=== PATIENT | female | born 1965 | race Caucasian/White ===

== ENCOUNTER 2023-04-18 19:26 | Inpatient (IN) | payer OTHER ==
[~2023-04-18] VITALS: Ht 170.2 cm; Wt 75.6 kg
[2023-04-18] MEDS ORDERED: 0.9%NACL 1000ML 1,000 ML IV SCH (20:00)
[2023-04-18 21:05] LABS: EOSINOPHILS % (AUTO) 0.3 % (0.0-8.0); MEAN CORPUSCULAR HEMOGLOBIN 24.7 pg (27.0-33.0); MEAN CORPUSCULAR HGB CONC 29.8 g/dL (32.0-36.0); MEAN CORPUSCULAR VOLUME 82.8 fL (79-99); MONOCYTES % (AUTO) 5.5 % (3.0-13.0); NEUTROPHILS % (AUTO) 77.7 % (40.0-77.0); PLATELET COUNT (AUTO) 162 K/uL (130-400); RED BLOOD CELL COUNT(AUTO) 2.39 MIL/uL (4.00-5.50); RED CELL DISTRIBUTION WIDTH 23.7 % (11.0-15.5); WHITE BLOOD COUNT (AUTO) 11.2 K/uL (4.8-10.8)
[2023-04-18 21:16] LABS: HEMATOCRIT 19.8 % (36-48)
[2023-04-18 21:17] LABS: INR 1.35 (0.85-1.15); PROTHROMBIN TIME 14.5 SEC (9.6-11.6)
[2023-04-18 21:18] LABS: PARTIAL THROMBOPLASTIN TIME 34.3 SEC (26.3-35.5)
[2023-04-18 21:25] LABS: B-TYPE NATRIURETIC PEPTIDE 351 pg/mL (0-100)
[2023-04-18 21:37] LABS: ALBUMIN 0.7 g/dL (3.5-5.0); CREATININE 1.5 mg/dL (0.5-1.5); MAGNESIUM 1.8 mg/dL (1.80-2.40); THYROID STIMULATING HORMONE 63.35 uIU/mL (0.36-3.74); TOTAL PROTEIN, SERUM 3.6 g/dL (6.0-8.3)
[2023-04-18 21:43] LABS: POTASSIUM 1.8 mmol/L (3.5-5.1)
[2023-04-18] MEDS ORDERED: PANTOPRAZOLE 40 MG/VIAL IV SCH (22:00)
[2023-04-18] MEDS ORDERED: POTASSIUM CHLORIDE 10% ELIXIR 20 MEQ/15 ML UDCUP PO SCH (22:00)
[2023-04-18] MEDS: POTASSIUM CHLORIDE 20 MEQ/100 ML BAG IV SCH (22:08)
[2023-04-18] MEDS ORDERED: LACTATED RINGERS 1000ML 1,000 ML IV SCH (22:30)
[2023-04-18] MEDS ORDERED: ONDANSETRON 4MG INJ IV ONE (22:30)
[2023-04-18] MEDS ORDERED: ONDANSETRON 4MG INJ IVP ONE (22:30)
[2023-04-18 22:45] LABS: APPEARANCE,URINE CLOUDY (CLEAR); BILIRUBIN,URINE 0.5 mg/dL (NEGATIVE); COLOR,URINE YELLOW (YELLOW); GLUCOSE, URINE (UA) NEGATIVE (NEGATIVE); KETONES,URINE NEGATIVE (NEGATIVE); LEUKOCYTE ESTERASE ,URINE NEGATIVE Leu/uL (NEGATIVE); NITRATE,URINE NEGATIVE (NEGATIVE); OCCULT BLOOD,URINE NEGATIVE (NEGATIVE); PROTEIN,URINE 20 mg/dL (NEGATIVE); UROBILINOGEN,URINE 3 mg/dL (0.2-1.0)
[2023-04-18 22:47] LABS: BACTERIA,URINE FEW /HPF (None Seen); HYALINE CASTS, URINE 26-50 /LPF (0-1 /LPF); MUCUS,URINE RARE LPF (None Seen); SQUAMOUS EPITHELIAL CELL,UR RARE /HPF (0-2)
[2023-04-18] MEDS ORDERED: VANCOMYCIN 1G/250ML KIT 250 ML IV ONE (23:30)
[2023-04-18] MEDS ORDERED: VANCOMYCIN PROTOCOL PER PHARMACY IV SCH (23:30)
[2023-04-18] MEDS ORDERED: MAGNESIUM 2GM PREMIX 50ML 50 ML IV PRN (23:30)
[2023-04-18] MEDS ORDERED: POTASSIUM CHLORIDE 10MEQ/100ML 100 ML IV PRN (23:30)
[2023-04-19] VITALS (82 sets, daily range): BP systolic 77–135; BP diastolic 37–82; PULSE 60–85; RESP 12–21; O2SAT 94–98
[2023-04-19] MEDS ORDERED: NOREPINEPHRIN 4MG/NS 250ML 250 ML IV PRN (00:30)
[2023-04-19 05:23] LABS: BASOPHILS % (AUTO) 0.4 % (0.0-5.0); EOSINOPHILS % (AUTO) 0.5 % (0.0-8.0); LYMPHOCYTES % (AUTO) 7.4 % (21.0-51.0); MEAN CORPUSCULAR HEMOGLOBIN 25.4 pg (27.0-33.0); MEAN CORPUSCULAR HGB CONC 30.9 g/dL (32.0-36.0); MEAN CORPUSCULAR VOLUME 82.4 fL (79-99); PLATELET COUNT (AUTO) 139 K/uL (130-400); RED BLOOD CELL COUNT(AUTO) 4.25 MIL/uL (4.00-5.50); RED CELL DISTRIBUTION WIDTH 20.5 % (11.0-15.5); WHITE BLOOD COUNT (AUTO) 16.5 K/uL (4.8-10.8)
[2023-04-19 05:48] LABS: ALBUMIN 0.9 g/dL (3.5-5.0); CREATININE 1.4 mg/dL (0.5-1.5)
[2023-04-19] MEDS: POTASSIUM CHLORIDE 20 MEQ/100 ML BAG IV SCH (05:56)
[2023-04-19] MEDS ORDERED: POTASSIUM CHLORIDE 20MEQ/100ML 100 ML IV PRN (08:00)
[2023-04-19] MEDS: MEROPENEM 1 GM VIAL IVPB SCH ×2 (09:04→21:22)
[2023-04-19] MEDS: PANTOPRAZOLE 40 MG/VIAL IVP SCH ×2 (09:04→21:22)
[2023-04-19] MEDS: MIDODRINE HCL 5 MG TABLET PO SCH ×3 (09:04→21:23)
[2023-04-19] MEDS: LEVOTHYROXINE 100MCG VIAL IV SCH (09:05)
[2023-04-19] MEDS: HYDROCORTISONE SOD SUCCINATE 100 MG/2 ML VIAL IV SCH ×3 (09:05→17:34)
[2023-04-19] MEDS: KCL 20 MEQ ERTAB PO SCH ×3 (09:05→15:57)
[2023-04-19] MEDS: POTASSIUM CHLORIDE 20MEQ/100ML 100 ML IV PRN ×2 (15:56→19:30)
[2023-04-19 16:45] LABS: HEMATOCRIT 35.6 % (36-48)
[2023-04-19 17:00] LABS: MAGNESIUM 1.8 mg/dL (1.80-2.40)
[2023-04-19] MEDS ORDERED: VANCOMYCIN 750MG VIAL IVPB SCH (18:00)
[2023-04-19] MEDS: 0.9%NACL 1000ML 1,000 ML IV SCH ×2 (18:58→21:46)
[2023-04-19 22:39] LABS: HEMATOCRIT 32.1 % (36-48)
[2023-04-20] MEDS: HYDROCORTISONE SOD SUCCINATE 100 MG/2 ML VIAL IV SCH ×4 (01:41→17:31)
[2023-04-20 03:36] LABS: BASOPHILS % (AUTO) 0.3 % (0.0-5.0); HEMATOCRIT 32.7 % (36-48); MEAN CORPUSCULAR HEMOGLOBIN 25.4 pg (27.0-33.0); MEAN CORPUSCULAR HGB CONC 31.5 g/dL (32.0-36.0); MEAN CORPUSCULAR VOLUME 80.7 fL (79-99); MONOCYTES % (AUTO) 2.6 % (3.0-13.0); NEUTROPHILS % (AUTO) 87.5 % (40.0-77.0); PLATELET COUNT (AUTO) 118 K/uL (130-400); RED BLOOD CELL COUNT(AUTO) 4.05 MIL/uL (4.00-5.50); RED CELL DISTRIBUTION WIDTH 21.5 % (11.0-15.5); WHITE BLOOD COUNT (AUTO) 13.6 K/uL (4.8-10.8)
[2023-04-20 03:51] VITALS: BP 115/73; PULSE 54; RESP 18
[2023-04-20 04:00] LABS: ALBUMIN 0.7 g/dL (3.5-5.0); CREATININE 1.6 mg/dL (0.5-1.5); POTASSIUM 3.5 mmol/L (3.5-5.1); TOTAL PROTEIN, SERUM 3.5 g/dL (6.0-8.3)
[2023-04-20] MEDS: LEVOTHYROXINE 100MCG VIAL IV SCH (05:26)
[2023-04-20] MEDS ORDERED: LEVOTHYROXINE 100MCG VIAL IV SCH (06:30)
[2023-04-20] MEDS: POTASSIUM CHLORIDE 10% ELIXIR 20 MEQ/15 ML UDCUP PO PRN (06:37)
[2023-04-20 08:00] VITALS: BP 112/76; PULSE 64; RESP 16
[2023-04-20 10:12] LABS: HEMATOCRIT 37.5 % (36-48)
[2023-04-20] MEDS: MEROPENEM 1 GM VIAL IVPB SCH (10:15)
[2023-04-20] MEDS: 0.9%NACL 1000ML 1,000 ML IV SCH ×2 (10:15→21:26)
[2023-04-20] MEDS: PANTOPRAZOLE 40 MG/VIAL IVP SCH ×2 (10:16→20:42)
[2023-04-20] MEDS: MIDODRINE HCL 5 MG TABLET PO SCH ×3 (10:16→21:00)
[2023-04-20 12:00] VITALS: BP 130/95; PULSE 67; RESP 16
[2023-04-20] MEDS ORDERED: LEVOFLOXACIN 500 MG/D5W 100 ML 100 ML IV ONE (15:30)
[2023-04-20 16:00] VITALS: BP 128/91; PULSE 62; RESP 16
[2023-04-20 16:36] LABS: HEMATOCRIT 37.4 % (36-48)
[2023-04-20 20:00] VITALS: O2SAT 98
[2023-04-20] MEDS: LACTOBACILLUS RHAMNOSUS GG 1 EACH CAP.SPRINK PO SCH (20:42)
[2023-04-20 20:59] VITALS: BP 127/86; PULSE 64; RESP 18
[2023-04-21] VITALS (7 sets, daily range): BP systolic 107–135; BP diastolic 60–86; PULSE 59–72; RESP 18–22; O2SAT 98–99
[2023-04-21 00:37] LABS: HEMATOCRIT 33.9 % (36-48)
[2023-04-21] MEDS: HYDROCORTISONE SOD SUCCINATE 100 MG/2 ML VIAL IV SCH ×4 (00:37→18:42)
[2023-04-21 05:02] LABS: HEMATOCRIT 33.6 % (36-48)
[2023-04-21] MEDS: LEVOTHYROXINE 100MCG VIAL IV SCH (06:38)
[2023-04-21] MEDS: LACTOBACILLUS RHAMNOSUS GG 1 EACH CAP.SPRINK PO SCH ×3 (09:07→20:45)
[2023-04-21] MEDS: PANTOPRAZOLE 40 MG/VIAL IVP SCH ×2 (09:07→20:45)
[2023-04-21] MEDS: MIDODRINE HCL 5 MG TABLET PO SCH ×3 (09:10→20:53)
[2023-04-21] MEDS: 0.9%NACL 1000ML 1,000 ML IV SCH ×2 (09:31→23:40)
[2023-04-21 10:20] LABS: HEMATOCRIT 37.8 % (36-48)
[2023-04-21 11:52] LABS: CREATININE 1.7 mg/dL (0.5-1.5)
[2023-04-21 11:59] LABS: ALBUMIN 0.8 g/dL (3.5-5.0); TOTAL PROTEIN, SERUM 3.7 g/dL (6.0-8.3)
[2023-04-21 12:09] LABS: BASOPHILS % (AUTO) 0.2 % (0.0-5.0); LYMPHOCYTES % (AUTO) 12.9 % (21.0-51.0); MEAN CORPUSCULAR HEMOGLOBIN 25.3 pg (27.0-33.0); MEAN CORPUSCULAR HGB CONC 30.7 g/dL (32.0-36.0); MEAN CORPUSCULAR VOLUME 82.3 fL (79-99); MONOCYTES % (AUTO) 2.7 % (3.0-13.0); NEUTROPHILS % (AUTO) 83.2 % (40.0-77.0); PLATELET COUNT (AUTO) 119 K/uL (130-400); RED BLOOD CELL COUNT(AUTO) 4.63 MIL/uL (4.00-5.50); RED CELL DISTRIBUTION WIDTH 22.1 % (11.0-15.5); WHITE BLOOD COUNT (AUTO) 11.4 K/uL (4.8-10.8)
[2023-04-21] MEDS: LEVOFLOXACIN 250 MG/D5W 50ML 50 ML IVPB SCH (14:29)
[2023-04-21 15:55] LABS: HEMATOCRIT 38.8 % (36-48)
[2023-04-21 23:32] LABS: HEMATOCRIT 39.4 % (36-48)
[2023-04-22] VITALS: BP 113/81; PULSE 68; RESP 22
[2023-04-22] MEDS: HYDROCORTISONE SOD SUCCINATE 100 MG/2 ML VIAL IV SCH ×4 (00:01→18:50)
[2023-04-22 04:00] VITALS: BP 108/80; PULSE 66; RESP 22
[2023-04-22] MEDS: LEVOTHYROXINE 100MCG VIAL IV SCH (06:00)
[2023-04-22 08:00] VITALS: BP 113/76; PULSE 69; RESP 22; O2SAT 96
[2023-04-22] MEDS: PANTOPRAZOLE 40 MG/VIAL IVP SCH ×2 (08:28→21:26)
[2023-04-22] MEDS: LACTOBACILLUS RHAMNOSUS GG 1 EACH CAP.SPRINK PO SCH ×3 (08:28→21:26)
[2023-04-22] MEDS: MIDODRINE HCL 5 MG TABLET PO SCH ×3 (08:29→21:26)
[2023-04-22 11:34] VITALS: BP 95/71; PULSE 82; RESP 20
[2023-04-22] MEDS: 0.9%NACL 1000ML 1,000 ML IV SCH (12:14)
[2023-04-22 16:00] VITALS: BP 109/79; PULSE 86; RESP 18
[2023-04-22] MEDS: LEVOFLOXACIN 250 MG/D5W 50ML 50 ML IVPB SCH (16:06)
[2023-04-22 20:00] VITALS: BP 105/88; PULSE 79; RESP 20
[2023-04-22] MEDS: BALSAM PERU/CASTOR OIL 60 GM TUBE TP SCH (21:26)
[2023-04-23] VITALS: BP 109/74; PULSE 75; RESP 20
[2023-04-23] MEDS: HYDROCORTISONE SOD SUCCINATE 100 MG/2 ML VIAL IV SCH ×4 (00:03→23:21)
[2023-04-23 04:00] VITALS: BP 106/80; PULSE 77; RESP 20
[2023-04-23] MEDS: LEVOTHYROXINE 100MCG VIAL IV SCH (05:29)
[2023-04-23 07:00] LABS: BASOPHILS % (AUTO) 0.2 % (0.0-5.0); HEMATOCRIT 37.6 % (36-48); LYMPHOCYTES % (AUTO) 16.4 % (21.0-51.0); MEAN CORPUSCULAR HEMOGLOBIN 25.6 pg (27.0-33.0); MEAN CORPUSCULAR HGB CONC 30.6 g/dL (32.0-36.0); MEAN CORPUSCULAR VOLUME 83.7 fL (79-99); MONOCYTES % (AUTO) 5.1 % (3.0-13.0); NEUTROPHILS % (AUTO) 77.4 % (40.0-77.0); PLATELET COUNT (AUTO) 125 K/uL (130-400); RED BLOOD CELL COUNT(AUTO) 4.49 MIL/uL (4.00-5.50); RED CELL DISTRIBUTION WIDTH 21.5 % (11.0-15.5); WHITE BLOOD COUNT (AUTO) 10.1 K/uL (4.8-10.8)
[2023-04-23 07:15] LABS: ALBUMIN 0.9 g/dL (3.5-5.0); CREATININE 1.1 mg/dL (0.5-1.5); POTASSIUM 3.1 mmol/L (3.5-5.1); TOTAL PROTEIN, SERUM 3.9 g/dL (6.0-8.3)
[2023-04-23 07:49] VITALS: BP 123/88; PULSE 80; RESP 17
[2023-04-23 11:21] VITALS: BP 114/74; PULSE 71; RESP 17
[2023-04-23] MEDS: LACTOBACILLUS RHAMNOSUS GG 1 EACH CAP.SPRINK PO SCH ×3 (12:44→23:18)
[2023-04-23] MEDS: PANTOPRAZOLE 40 MG/VIAL IVP SCH ×2 (12:44→23:11)
[2023-04-23] MEDS: MIDODRINE HCL 5 MG TABLET PO SCH ×3 (12:45→23:11)
[2023-04-23] MEDS: BALSAM PERU/CASTOR OIL 60 GM TUBE TP SCH ×2 (12:45→23:22)
[2023-04-23] MEDS: LEVOFLOXACIN 250 MG/D5W 50ML 50 ML IVPB SCH (15:24)
[2023-04-23] MEDS: MAGNESIUM 2GM PREMIX 50ML 50 ML IV PRN (15:26)
[2023-04-23] MEDS: POTASSIUM CHLORIDE 10% ELIXIR 20 MEQ/15 ML UDCUP PO PRN (15:27)
[2023-04-23] MEDS: 0.9%NACL 1000ML 1,000 ML IV SCH (15:51)
[2023-04-23] MEDS ORDERED: PEG 3350/NA SULF,BICARB,CL/KCL 4000 ML SOLN PO ONE (16:00)
[2023-04-23 16:17] VITALS: BP 109/73; PULSE 82; RESP 19
[2023-04-23 20:00] VITALS: BP 113/88; PULSE 78; RESP 16; O2SAT 96
[2023-04-24] VITALS (17 sets, daily range): BP systolic 102–129; BP diastolic 79–96; PULSE 74–97; RESP 17–18; O2SAT 95
[2023-04-24] MEDS: HYDROCORTISONE SOD SUCCINATE 100 MG/2 ML VIAL IV SCH ×4 (04:41→23:36)
[2023-04-24] MEDS: LEVOTHYROXINE 100MCG VIAL IV SCH (04:41)
[2023-04-24 05:26] LABS: HEMATOCRIT 35.8 % (36-48); MEAN CORPUSCULAR HEMOGLOBIN 25.3 pg (27.0-33.0); MEAN CORPUSCULAR HGB CONC 30.4 g/dL (32.0-36.0); MEAN CORPUSCULAR VOLUME 83.3 fL (79-99); RED BLOOD CELL COUNT(AUTO) 4.3 MIL/uL (4.00-5.50); RED CELL DISTRIBUTION WIDTH 21.5 % (11.0-15.5); WHITE BLOOD COUNT (AUTO) 8.4 K/uL (4.8-10.8)
[2023-04-24 05:51] LABS: ALBUMIN 0.9 g/dL (3.5-5.0); CREATININE 0.9 mg/dL (0.5-1.5); POTASSIUM 3.2 mmol/L (3.5-5.1); TOTAL PROTEIN, SERUM 3.7 g/dL (6.0-8.3)
[2023-04-24] MEDS: POTASSIUM CHLORIDE 10MEQ/100ML 100 ML IV PRN ×2 (06:30→14:26)
[2023-04-24] MEDS: MIDODRINE HCL 5 MG TABLET PO SCH ×4 (09:00→20:54)
[2023-04-24] MEDS: LACTOBACILLUS RHAMNOSUS GG 1 EACH CAP.SPRINK PO SCH ×3 (09:00→20:29)
[2023-04-24] MEDS: BALSAM PERU/CASTOR OIL 60 GM TUBE TP SCH ×2 (09:00→20:29)
[2023-04-24] MEDS: PANTOPRAZOLE 40 MG/VIAL IVP SCH ×2 (09:08→20:29)
[2023-04-24] MEDS ORDERED: LIDOCAINE HCL 1% 20 ML VIAL ONE (10:54)
[2023-04-24] MEDS ORDERED: IOHEXOL-350 50ML VIAL IV ONE (10:54)
[2023-04-24] MEDS: 0.9%NACL 1000ML 1,000 ML IV SCH ×2 (12:43→18:42)
[2023-04-24] MEDS: LEVOFLOXACIN 250 MG/D5W 50ML 50 ML IVPB SCH (16:01)
[2023-04-24] MEDS: POTASSIUM CHLORIDE 10% ELIXIR 20 MEQ/15 ML UDCUP PO PRN ×2 (20:54→23:36)
[2023-04-25] VITALS (8 sets, daily range): BP systolic 120–132; BP diastolic 80–95; PULSE 81–96; RESP 18; O2SAT 92–97
[2023-04-25 05:07] LABS: BASOPHILS % (AUTO) 0.1 % (0.0-5.0); HEMATOCRIT 35.3 % (36-48); LYMPHOCYTES % (AUTO) 14.4 % (21.0-51.0); MEAN CORPUSCULAR HEMOGLOBIN 26.1 pg (27.0-33.0); MEAN CORPUSCULAR HGB CONC 31.2 g/dL (32.0-36.0); MEAN CORPUSCULAR VOLUME 83.8 fL (79-99); MONOCYTES % (AUTO) 5.6 % (3.0-13.0); NEUTROPHILS % (AUTO) 78.7 % (40.0-77.0); PLATELET COUNT (AUTO) 169 K/uL (130-400); RED BLOOD CELL COUNT(AUTO) 4.21 MIL/uL (4.00-5.50); RED CELL DISTRIBUTION WIDTH 21.5 % (11.0-15.5); WHITE BLOOD COUNT (AUTO) 10.9 K/uL (4.8-10.8)
[2023-04-25 05:43] LABS: ALBUMIN 1.1 g/dL (3.5-5.0); CREATININE 0.9 mg/dL (0.5-1.5); POTASSIUM 4.2 mmol/L (3.5-5.1); TOTAL PROTEIN, SERUM 4.2 g/dL (6.0-8.3)
[2023-04-25] MEDS: LEVOTHYROXINE 100MCG VIAL IV SCH (06:35)
[2023-04-25] MEDS: HYDROCORTISONE SOD SUCCINATE 100 MG/2 ML VIAL IV SCH ×3 (06:35→18:22)
[2023-04-25] MEDS: LACTOBACILLUS RHAMNOSUS GG 1 EACH CAP.SPRINK PO SCH ×3 (08:52→21:09)
[2023-04-25] MEDS: BALSAM PERU/CASTOR OIL 60 GM TUBE TP SCH ×2 (08:52→21:46)
[2023-04-25] MEDS: PANTOPRAZOLE 40 MG/VIAL IVP SCH ×2 (08:52→21:09)
[2023-04-25] MEDS: MIDODRINE HCL 5 MG TABLET PO SCH ×2 (08:53→14:00)
[2023-04-25] MEDS: LEVOFLOXACIN 250 MG/D5W 50ML 50 ML IVPB SCH (16:11)
[2023-04-25] MEDS: 0.9%NACL 1000ML 1,000 ML IV SCH (18:23)
[2023-04-25] MEDS: PROPRANOLOL HCL 20 MG TAB PO SCH (21:00)
[2023-04-26] VITALS (7 sets, daily range): BP systolic 101–140; BP diastolic 83–88; PULSE 62–76; RESP 14–19; O2SAT 93–94
[2023-04-26] MEDS: FUROSEMIDE 20MG VIAL IV SCH ×3 (00:41→23:49)
[2023-04-26] MEDS: HYDROCORTISONE SOD SUCCINATE 100 MG/2 ML VIAL IV SCH ×5 (00:47→23:49)
[2023-04-26 05:05] LABS: HEMATOCRIT 38.6 % (36-48); MEAN CORPUSCULAR HEMOGLOBIN 25.6 pg (27.0-33.0); MEAN CORPUSCULAR HGB CONC 30.6 g/dL (32.0-36.0); MEAN CORPUSCULAR VOLUME 83.7 fL (79-99); PLATELET COUNT (AUTO) 193 K/uL (130-400); RED BLOOD CELL COUNT(AUTO) 4.61 MIL/uL (4.00-5.50); RED CELL DISTRIBUTION WIDTH 21.6 % (11.0-15.5); WHITE BLOOD COUNT (AUTO) 11.1 K/uL (4.8-10.8)
[2023-04-26 05:22] LABS: ALBUMIN 1.3 g/dL (3.5-5.0); CREATININE 0.7 mg/dL (0.5-1.5); MAGNESIUM 1.8 mg/dL (1.80-2.40); POTASSIUM 3.4 mmol/L (3.5-5.1); TOTAL PROTEIN, SERUM 4.4 g/dL (6.0-8.3)
[2023-04-26] MEDS: LEVOTHYROXINE 100MCG VIAL IV SCH (07:06)
[2023-04-26] MEDS: PANTOPRAZOLE 40 MG/VIAL IVP SCH ×2 (09:47→20:42)
[2023-04-26] MEDS: PROPRANOLOL HCL 20 MG TAB PO SCH ×2 (09:48→20:42)
[2023-04-26] MEDS: LACTOBACILLUS RHAMNOSUS GG 1 EACH CAP.SPRINK PO SCH ×3 (09:48→20:42)
[2023-04-26] MEDS: BALSAM PERU/CASTOR OIL 60 GM TUBE TP SCH ×2 (10:05→23:51)
[2023-04-26] MEDS: 0.9%NACL 1000ML 1,000 ML IV SCH ×2 (10:30→23:50)
[2023-04-26] MEDS ORDERED: PEG 3350/NA SULF,BICARB,CL/KCL 4000 ML SOLN PO ONE (15:00)
[2023-04-26] MEDS: KCL 20 MEQ ERTAB PO PRN (15:45)
[2023-04-26] MEDS: LEVOFLOXACIN 250 MG/D5W 50ML 50 ML IVPB SCH (15:48)
[2023-04-26] MEDS: MAGNESIUM 2GM PREMIX 50ML 50 ML IV PRN (16:09)
[2023-04-27] VITALS (9 sets, daily range): BP systolic 70–112; BP diastolic 42–76; PULSE 60–90; RESP 18–20; O2SAT 93
[2023-04-27] MEDS: 0.9%NACL 1000ML 1,000 ML IV SCH ×2 (05:04→12:59)
[2023-04-27 05:28] LABS: ALBUMIN 1.1 g/dL (3.5-5.0); CREATININE 0.7 mg/dL (0.5-1.5); POTASSIUM 3.2 mmol/L (3.5-5.1); TOTAL PROTEIN, SERUM 3.8 g/dL (6.0-8.3)
[2023-04-27] MEDS: HYDROCORTISONE SOD SUCCINATE 100 MG/2 ML VIAL IV SCH ×4 (05:57→22:58)
[2023-04-27] MEDS: LEVOTHYROXINE 100MCG VIAL IV SCH (06:30)
[2023-04-27] MEDS: PANTOPRAZOLE 40 MG/VIAL IVP SCH ×2 (08:40→19:48)
[2023-04-27] MEDS: LACTOBACILLUS RHAMNOSUS GG 1 EACH CAP.SPRINK PO SCH ×3 (08:40→19:49)
[2023-04-27] MEDS: PROPRANOLOL HCL 20 MG TAB PO SCH (08:40)
[2023-04-27] MEDS: BALSAM PERU/CASTOR OIL 60 GM TUBE TP SCH ×2 (08:41→19:53)
[2023-04-27] MEDS: FUROSEMIDE 20MG VIAL IV SCH ×2 (11:29→21:17)
[2023-04-27] MEDS: LEVOFLOXACIN 250 MG/D5W 50ML 50 ML IVPB SCH (15:44)
[2023-04-27] MEDS: KCL 20 MEQ ERTAB PO PRN ×2 (18:07→19:53)
[2023-04-27] MEDS: MAGNESIUM 2GM PREMIX 50ML 50 ML IV PRN (22:40)
[2023-04-28] VITALS (8 sets, daily range): BP systolic 93–116; BP diastolic 67–86; PULSE 70–75; RESP 16–20; O2SAT 96
[2023-04-28] MEDS: 0.9%NACL 1000ML 1,000 ML IV SCH (04:20)
[2023-04-28] MEDS: HYDROCORTISONE SOD SUCCINATE 100 MG/2 ML VIAL IV SCH ×4 (04:30→23:43)
[2023-04-28 05:27] LABS: CREATININE 0.9 mg/dL (0.5-1.5); MAGNESIUM 2.3 mg/dL (1.80-2.40); POTASSIUM 3.9 mmol/L (3.5-5.1); TOTAL PROTEIN, SERUM 3.6 g/dL (6.0-8.3)
[2023-04-28] MEDS: LEVOTHYROXINE 100MCG VIAL IV SCH (05:35)
[2023-04-28] MEDS: PANTOPRAZOLE 40 MG/VIAL IVP SCH ×2 (08:55→19:59)
[2023-04-28] MEDS: BALSAM PERU/CASTOR OIL 60 GM TUBE TP SCH ×2 (08:58→20:00)
[2023-04-28] MEDS: LACTOBACILLUS RHAMNOSUS GG 1 EACH CAP.SPRINK PO SCH ×3 (09:00→19:59)
[2023-04-28] MEDS: FUROSEMIDE 20MG VIAL IV SCH ×2 (11:39→22:02)
[2023-04-28] MEDS: LEVOFLOXACIN 250 MG/D5W 50ML 50 ML IVPB SCH (15:52)
[2023-04-28] MEDS: HYDROXYZINE 25 MG TABLET PO SCH (19:59)
[2023-04-29] VITALS (32 sets, daily range): BP systolic 116–151; BP diastolic 60–105; PULSE 60–87; RESP 12–24; O2SAT 97
[2023-04-29 05:29] LABS: BASOPHILS % (AUTO) 0.1 % (0.0-5.0); HEMATOCRIT 30.4 % (36-48); LYMPHOCYTES % (AUTO) 8.6 % (21.0-51.0); MEAN CORPUSCULAR HEMOGLOBIN 26.2 pg (27.0-33.0); MEAN CORPUSCULAR HGB CONC 31.3 g/dL (32.0-36.0); MONOCYTES % (AUTO) 3.7 % (3.0-13.0); NEUTROPHILS % (AUTO) 86.8 % (40.0-77.0); PLATELET COUNT (AUTO) 134 K/uL (130-400); RED BLOOD CELL COUNT(AUTO) 3.62 MIL/uL (4.00-5.50); RED CELL DISTRIBUTION WIDTH 22.5 % (11.0-15.5); WHITE BLOOD COUNT (AUTO) 9.3 K/uL (4.8-10.8)
[2023-04-29 05:42] LABS: ALBUMIN 0.9 g/dL (3.5-5.0); CREATININE 0.8 mg/dL (0.5-1.5); TOTAL PROTEIN, SERUM 3.5 g/dL (6.0-8.3)
[2023-04-29 05:44] LABS: POTASSIUM 2.9 mmol/L (3.5-5.1)
[2023-04-29] MEDS: HYDROCORTISONE SOD SUCCINATE 100 MG/2 ML VIAL IV SCH ×3 (06:05→18:26)
[2023-04-29] MEDS: LEVOTHYROXINE 100MCG VIAL IV SCH (06:06)
[2023-04-29] MEDS: POTASSIUM CHLORIDE 10MEQ/100ML 100 ML IV PRN ×2 (06:30→10:33)
[2023-04-29] MEDS: LACTOBACILLUS RHAMNOSUS GG 1 EACH CAP.SPRINK PO SCH ×3 (09:00→20:47)
[2023-04-29] MEDS: HYDROXYZINE 25 MG TABLET PO SCH ×3 (09:00→20:47)
[2023-04-29] MEDS: PANTOPRAZOLE 40 MG/VIAL IVP SCH ×2 (10:29→20:47)
[2023-04-29] MEDS: BALSAM PERU/CASTOR OIL 60 GM TUBE TP SCH ×2 (10:30→20:50)
[2023-04-29] MEDS: FUROSEMIDE 20MG VIAL IV SCH ×2 (10:30→22:30)
[2023-04-29 10:35] LABS: % IRON SATURATION 50.5 % (22-44)
[2023-04-29] MEDS ORDERED: PROPOFOL 10 MG/ML 20ML VIAL IV ONE (12:53)
[2023-04-29] MEDS: LEVOFLOXACIN 250 MG/D5W 50ML 50 ML IVPB SCH (14:47)
[2023-04-30] VITALS (7 sets, daily range): BP systolic 109–132; BP diastolic 73–104; PULSE 67–84; RESP 16–20; O2SAT 95–98
[2023-04-30] MEDS: HYDROCORTISONE SOD SUCCINATE 100 MG/2 ML VIAL IV SCH ×5 (01:08→23:36)
[2023-04-30] MEDS: LEVOTHYROXINE 100MCG VIAL IV SCH (05:56)
[2023-04-30] MEDS: PANTOPRAZOLE 40 MG/VIAL IVP SCH ×2 (10:16→19:49)
[2023-04-30] MEDS: FUROSEMIDE 20MG VIAL IV SCH ×2 (10:17→19:50)
[2023-04-30] MEDS: HYDROXYZINE 25 MG TABLET PO SCH ×3 (10:17→19:49)
[2023-04-30] MEDS: LACTOBACILLUS RHAMNOSUS GG 1 EACH CAP.SPRINK PO SCH ×3 (10:17→19:49)
[2023-04-30] MEDS: LEVOFLOXACIN 250 MG/D5W 50ML 50 ML IVPB SCH (15:32)
[2023-04-30] MEDS: BALSAM PERU/CASTOR OIL 60 GM TUBE TP SCH (19:49)
[2023-05-01] VITALS (8 sets, daily range): BP systolic 96–116; BP diastolic 55–81; PULSE 67–94; RESP 18–20; O2SAT 96
[2023-05-01] MEDS: LEVOTHYROXINE 100MCG VIAL IV SCH (05:21)
[2023-05-01] MEDS: HYDROCORTISONE SOD SUCCINATE 100 MG/2 ML VIAL IV SCH ×3 (05:21→17:41)
[2023-05-01] MEDS: LACTOSE-REDUCED VAN/STB/CHOC 237 ML BOTTLE PO SCH ×2 (08:00→12:00)
[2023-05-01 08:16] LABS: BASOPHILS % (AUTO) 0.3 % (0.0-5.0); EOSINOPHILS % (AUTO) 0.1 % (0.0-8.0); HEMATOCRIT 40.4 % (36-48); LYMPHOCYTES % (AUTO) 6.6 % (21.0-51.0); MEAN CORPUSCULAR HEMOGLOBIN 26.8 pg (27.0-33.0); MEAN CORPUSCULAR HGB CONC 31.7 g/dL (32.0-36.0); MEAN CORPUSCULAR VOLUME 84.7 fL (79-99); MONOCYTES % (AUTO) 4.3 % (3.0-13.0); NEUTROPHILS % (AUTO) 87.8 % (40.0-77.0); PLATELET COUNT (AUTO) 170 K/uL (130-400); RED BLOOD CELL COUNT(AUTO) 4.77 MIL/uL (4.00-5.50); RED CELL DISTRIBUTION WIDTH 22.4 % (11.0-15.5); WHITE BLOOD COUNT (AUTO) 15.8 K/uL (4.8-10.8)
[2023-05-01 08:29] LABS: ALBUMIN 1.2 g/dL (3.5-5.0); CREATININE 0.9 mg/dL (0.5-1.5); MAGNESIUM 1.8 mg/dL (1.80-2.40); TOTAL PROTEIN, SERUM 4.2 g/dL (6.0-8.3)
[2023-05-01 08:39] LABS: POTASSIUM 2.8 mmol/L (3.5-5.1)
[2023-05-01] MEDS: PANTOPRAZOLE 40 MG/VIAL IVP SCH ×2 (08:41→20:36)
[2023-05-01] MEDS: HYDROXYZINE 25 MG TABLET PO SCH ×3 (08:42→20:37)
[2023-05-01] MEDS: LACTOBACILLUS RHAMNOSUS GG 1 EACH CAP.SPRINK PO SCH ×3 (08:42→20:37)
[2023-05-01] MEDS: POTASSIUM CHLORIDE 20MEQ/100ML 100 ML IV PRN ×2 (08:42→12:09)
[2023-05-01] MEDS: BALSAM PERU/CASTOR OIL 60 GM TUBE TP SCH ×2 (08:51→20:38)
[2023-05-01] MEDS: FUROSEMIDE 20MG VIAL IV SCH ×2 (11:05→22:41)
[2023-05-01] MEDS: LEVOFLOXACIN 250 MG/D5W 50ML 50 ML IVPB SCH (14:38)
[2023-05-01] MEDS: POTASSIUM CHLORIDE 10% ELIXIR 20 MEQ/15 ML UDCUP PO PRN ×2 (17:41→20:36)
[2023-05-02] VITALS (7 sets, daily range): BP systolic 98–109; BP diastolic 53–73; PULSE 90–107; RESP 17–20; O2SAT 98–100
[2023-05-02] MEDS: HYDROCORTISONE SOD SUCCINATE 100 MG/2 ML VIAL IV SCH ×5 (00:32→18:09)
[2023-05-02 05:25] LABS: BASOPHILS % (AUTO) 0.1 % (0.0-5.0); EOSINOPHILS % (AUTO) 0.2 % (0.0-8.0); HEMATOCRIT 33.7 % (36-48); LYMPHOCYTES % (AUTO) 9.4 % (21.0-51.0); MEAN CORPUSCULAR VOLUME 84.3 fL (79-99); MONOCYTES % (AUTO) 6.3 % (3.0-13.0); PLATELET COUNT (AUTO) 111 K/uL (130-400); RED CELL DISTRIBUTION WIDTH 21.9 % (11.0-15.5); WHITE BLOOD COUNT (AUTO) 12.1 K/uL (4.8-10.8)
[2023-05-02] MEDS: LEVOTHYROXINE 100MCG VIAL IV SCH (05:34)
[2023-05-02 05:49] LABS: B-TYPE NATRIURETIC PEPTIDE 1060 pg/mL (0-100)
[2023-05-02 05:58] LABS: ALBUMIN 1.1 g/dL (3.5-5.0); CREATININE 0.9 mg/dL (0.5-1.5); POTASSIUM 3.2 mmol/L (3.5-5.1); TOTAL PROTEIN, SERUM 3.8 g/dL (6.0-8.3)
[2023-05-02] MEDS: POTASSIUM CHLORIDE 10% ELIXIR 20 MEQ/15 ML UDCUP PO PRN ×2 (06:28→18:07)
[2023-05-02] MEDS: LACTOSE-REDUCED VAN/STB/CHOC 237 ML BOTTLE PO SCH ×4 (08:00→18:08)
[2023-05-02] MEDS: HYDROXYZINE 25 MG TABLET PO SCH ×3 (09:13→21:23)
[2023-05-02] MEDS: PANTOPRAZOLE 40 MG/VIAL IVP SCH ×2 (09:13→21:22)
[2023-05-02] MEDS: BALSAM PERU/CASTOR OIL 60 GM TUBE TP SCH ×2 (09:13→21:23)
[2023-05-02] MEDS: LACTOBACILLUS RHAMNOSUS GG 1 EACH CAP.SPRINK PO SCH ×3 (09:13→21:22)
[2023-05-02] MEDS: FUROSEMIDE 20MG VIAL IV SCH ×2 (11:09→21:22)
[2023-05-02] MEDS ORDERED: DIATR MEGLU/DIATRIZOATE SODIUM 30 ML BOTTLE ONE (12:03)
[2023-05-02] MEDS ORDERED: IOHEXOL 350 MG/ML 100ML INFUS..BTL IV ONE (16:03)
[2023-05-02] MEDS: LEVOFLOXACIN 250 MG/D5W 50ML 50 ML IVPB SCH (18:06)
[2023-05-03] MEDS: HYDROCORTISONE SOD SUCCINATE 100 MG/2 ML VIAL IV SCH ×4 (01:21→17:31)
[2023-05-03 03:08] VITALS: BP 122/81; PULSE 94; RESP 20
[2023-05-03 05:27] LABS: BASOPHILS % (AUTO) 0.1 % (0.0-5.0); EOSINOPHILS % (AUTO) 0.1 % (0.0-8.0); HEMATOCRIT 31.9 % (36-48); MEAN CORPUSCULAR HEMOGLOBIN 26.7 pg (27.0-33.0); MEAN CORPUSCULAR HGB CONC 31.7 g/dL (32.0-36.0); MEAN CORPUSCULAR VOLUME 84.4 fL (79-99); NEUTROPHILS % (AUTO) 86.4 % (40.0-77.0); PLATELET COUNT (AUTO) 96 K/uL (130-400); RED BLOOD CELL COUNT(AUTO) 3.78 MIL/uL (4.00-5.50); RED CELL DISTRIBUTION WIDTH 22.2 % (11.0-15.5); WHITE BLOOD COUNT (AUTO) 11.4 K/uL (4.8-10.8)
[2023-05-03 05:57] LABS: ALBUMIN 1.2 g/dL (3.5-5.0); CREATININE 0.7 mg/dL (0.5-1.5); POTASSIUM 3.7 mmol/L (3.5-5.1)
[2023-05-03] MEDS: LEVOTHYROXINE 100MCG VIAL IV SCH (06:52)
[2023-05-03 08:00] VITALS: BP 138/91; PULSE 69; RESP 19; O2SAT 93
[2023-05-03] MEDS: LACTOSE-REDUCED VAN/STB/CHOC 237 ML BOTTLE PO SCH ×3 (08:00→17:00)
[2023-05-03] MEDS: HYDROXYZINE 25 MG TABLET PO SCH ×3 (10:26→21:43)
[2023-05-03] MEDS: LACTOBACILLUS RHAMNOSUS GG 1 EACH CAP.SPRINK PO SCH ×3 (10:26→21:43)
[2023-05-03] MEDS: PANTOPRAZOLE 40 MG/VIAL IVP SCH ×2 (10:26→21:43)
[2023-05-03] MEDS: FUROSEMIDE 20MG VIAL IV SCH ×2 (10:26→21:44)
[2023-05-03] MEDS: BALSAM PERU/CASTOR OIL 60 GM TUBE TP SCH ×2 (10:27→21:44)
[2023-05-03 12:00] VITALS: BP 104/80; PULSE 76; RESP 17
[2023-05-03 16:00] VITALS: BP 134/88; PULSE 90; RESP 19
[2023-05-03] MEDS: LEVOFLOXACIN 250 MG/D5W 50ML 50 ML IVPB SCH (17:31)
[2023-05-03] MEDS: LACTULOSE 20 GM/30 ML UDCUP PO PRN (18:31)
[2023-05-03 19:07] VITALS: O2SAT 97
[2023-05-03 20:00] VITALS: BP 113/77; PULSE 87; RESP 19
[2023-05-04] VITALS (9 sets, daily range): BP systolic 110–144; BP diastolic 60–97; PULSE 78–94; RESP 16–19; O2SAT 97–99
[2023-05-04] MEDS: HYDROCORTISONE SOD SUCCINATE 100 MG/2 ML VIAL IV SCH ×5 (00:04→23:43)
[2023-05-04] MEDS: LEVOTHYROXINE 100MCG VIAL IV SCH (06:19)
[2023-05-04 06:37] LABS: BASOPHILS % (AUTO) 0.2 % (0.0-5.0); EOSINOPHILS % (AUTO) 0.1 % (0.0-8.0); HEMATOCRIT 28.5 % (36-48); LYMPHOCYTES % (AUTO) 7.2 % (21.0-51.0); MEAN CORPUSCULAR HEMOGLOBIN 27.2 pg (27.0-33.0); MEAN CORPUSCULAR HGB CONC 31.9 g/dL (32.0-36.0); MEAN CORPUSCULAR VOLUME 85.1 fL (79-99); MONOCYTES % (AUTO) 5.6 % (3.0-13.0); NEUTROPHILS % (AUTO) 85.7 % (40.0-77.0); PLATELET COUNT (AUTO) 91 K/uL (130-400); RED BLOOD CELL COUNT(AUTO) 3.35 MIL/uL (4.00-5.50); RED CELL DISTRIBUTION WIDTH 21.7 % (11.0-15.5); WHITE BLOOD COUNT (AUTO) 9.7 K/uL (4.8-10.8)
[2023-05-04 06:51] LABS: CREATININE 0.7 mg/dL (0.5-1.5); POTASSIUM 3.2 mmol/L (3.5-5.1); TOTAL PROTEIN, SERUM 3.6 g/dL (6.0-8.3)
[2023-05-04] MEDS: LACTOSE-REDUCED VAN/STB/CHOC 237 ML BOTTLE PO SCH ×3 (09:22→16:01)
[2023-05-04] MEDS: PANTOPRAZOLE 40 MG/VIAL IVP SCH ×2 (09:22→21:28)
[2023-05-04] MEDS: HYDROXYZINE 25 MG TABLET PO SCH ×3 (09:24→21:28)
[2023-05-04] MEDS: Vitamin B Complex/Vit C/Folic Acid PO SCH (09:24)
[2023-05-04] MEDS: BALSAM PERU/CASTOR OIL 60 GM TUBE TP SCH ×2 (09:24→21:31)
[2023-05-04] MEDS: LACTOBACILLUS RHAMNOSUS GG 1 EACH CAP.SPRINK PO SCH ×3 (09:24→21:27)
[2023-05-04] MEDS: FUROSEMIDE 20MG VIAL IV SCH ×2 (09:26→21:31)
[2023-05-04] MEDS: KCL 20 MEQ ERTAB PO PRN ×3 (14:31→23:44)
[2023-05-04] MEDS: LEVOFLOXACIN 250 MG/D5W 50ML 50 ML IVPB SCH ×2 (15:34→15:35)
[2023-05-05 03:41] VITALS: BP 98/70; PULSE 81; RESP 16
[2023-05-05 05:45] LABS: BASOPHILS % (AUTO) 0.3 % (0.0-5.0); EOSINOPHILS % (AUTO) 0.1 % (0.0-8.0); HEMATOCRIT 30.6 % (36-48); LYMPHOCYTES % (AUTO) 8.9 % (21.0-51.0); MEAN CORPUSCULAR HEMOGLOBIN 27.4 pg (27.0-33.0); MEAN CORPUSCULAR HGB CONC 32.4 g/dL (32.0-36.0); MEAN CORPUSCULAR VOLUME 84.8 fL (79-99); MONOCYTES % (AUTO) 6.3 % (3.0-13.0); NEUTROPHILS % (AUTO) 83.1 % (40.0-77.0); PLATELET COUNT (AUTO) 110 K/uL (130-400); RED BLOOD CELL COUNT(AUTO) 3.61 MIL/uL (4.00-5.50); RED CELL DISTRIBUTION WIDTH 21.4 % (11.0-15.5); WHITE BLOOD COUNT (AUTO) 7.4 K/uL (4.8-10.8)
[2023-05-05] MEDS: LEVOTHYROXINE 100MCG VIAL IV SCH (06:05)
[2023-05-05] MEDS: HYDROCORTISONE SOD SUCCINATE 100 MG/2 ML VIAL IV SCH ×4 (06:05→23:12)
[2023-05-05 06:11] LABS: ALBUMIN 1.1 g/dL (3.5-5.0); CREATININE 0.7 mg/dL (0.5-1.5); POTASSIUM 3.5 mmol/L (3.5-5.1); TOTAL PROTEIN, SERUM 3.8 g/dL (6.0-8.3)
[2023-05-05] MEDS: LACTULOSE 20 GM/30 ML UDCUP PO PRN (06:22)
[2023-05-05 08:00] VITALS: BP 97/72; PULSE 91; RESP 18
[2023-05-05] MEDS: LACTOSE-REDUCED VAN/STB/CHOC 237 ML BOTTLE PO SCH ×3 (08:00→17:00)
[2023-05-05] MEDS: FUROSEMIDE 20MG VIAL IV SCH ×2 (09:16→19:51)
[2023-05-05] MEDS: BALSAM PERU/CASTOR OIL 60 GM TUBE TP SCH ×2 (09:16→19:50)
[2023-05-05] MEDS: HYDROXYZINE 25 MG TABLET PO SCH ×3 (09:16→19:50)
[2023-05-05] MEDS: Vitamin B Complex/Vit C/Folic Acid PO SCH (09:16)
[2023-05-05] MEDS: LACTOBACILLUS RHAMNOSUS GG 1 EACH CAP.SPRINK PO SCH ×3 (09:16→19:50)
[2023-05-05] MEDS: PANTOPRAZOLE 40 MG/VIAL IVP SCH ×2 (09:16→19:50)
[2023-05-05 12:00] VITALS: BP 121/81; PULSE 102; RESP 19
[2023-05-05 16:00] VITALS: BP 106/78; PULSE 101; RESP 18
[2023-05-05 20:00] VITALS: BP 113/69; PULSE 94; RESP 20; O2SAT 98
[2023-05-06] VITALS: BP 107/70; PULSE 95; RESP 20
[2023-05-06 04:00] VITALS: BP 112/79; PULSE 103; RESP 20
[2023-05-06] MEDS: LEVOTHYROXINE 100MCG VIAL IV SCH (05:57)
[2023-05-06] MEDS: HYDROCORTISONE SOD SUCCINATE 100 MG/2 ML VIAL IV SCH ×4 (05:57→23:10)
[2023-05-06 08:00] VITALS: BP 111/80; PULSE 80; RESP 19; O2SAT 96
[2023-05-06] MEDS: LACTOSE-REDUCED VAN/STB/CHOC 237 ML BOTTLE PO SCH ×3 (08:00→16:59)
[2023-05-06] MEDS: Vitamin B Complex/Vit C/Folic Acid PO SCH (09:38)
[2023-05-06] MEDS: HYDROXYZINE 25 MG TABLET PO SCH ×3 (09:39→20:44)
[2023-05-06] MEDS: LACTOBACILLUS RHAMNOSUS GG 1 EACH CAP.SPRINK PO SCH ×3 (09:39→20:44)
[2023-05-06] MEDS: PANTOPRAZOLE 40 MG/VIAL IVP SCH ×2 (09:39→20:44)
[2023-05-06] MEDS: FUROSEMIDE 20MG VIAL IV SCH ×2 (09:39→23:11)
[2023-05-06] MEDS: NYSTATIN 15 GM OINT TP PRN ×2 (10:47→20:44)
[2023-05-06] MEDS: BALSAM PERU/CASTOR OIL 60 GM TUBE TP SCH ×2 (10:47→20:45)
[2023-05-06] MEDS: KCL 20 MEQ ERTAB PO PRN ×2 (11:50→14:19)
[2023-05-06 11:58] VITALS: BP 119/81; PULSE 106; RESP 19
[2023-05-06] MEDS: ACETAMINOPHEN 500 MG TABLET PO PRN ×2 (12:34→20:43)
[2023-05-06 16:00] VITALS: BP 116/65; PULSE 98; RESP 18
[2023-05-06 20:00] VITALS: BP 115/72; PULSE 94; RESP 20; O2SAT 95
[2023-05-07] VITALS (8 sets, daily range): BP systolic 105–121; BP diastolic 68–84; PULSE 73–106; RESP 16–18; O2SAT 95–96
[2023-05-07 05:28] LABS: BASOPHILS % (AUTO) 0.1 % (0.0-5.0); EOSINOPHILS % (AUTO) 0.1 % (0.0-8.0); HEMATOCRIT 28.5 % (36-48); LYMPHOCYTES % (AUTO) 11.2 % (21.0-51.0); MEAN CORPUSCULAR HGB CONC 32.6 g/dL (32.0-36.0); MEAN CORPUSCULAR VOLUME 82.8 fL (79-99); MONOCYTES % (AUTO) 7.4 % (3.0-13.0); PLATELET COUNT (AUTO) 125 K/uL (130-400); RED BLOOD CELL COUNT(AUTO) 3.44 MIL/uL (4.00-5.50); RED CELL DISTRIBUTION WIDTH 21.9 % (11.0-15.5); WHITE BLOOD COUNT (AUTO) 9.7 K/uL (4.8-10.8)
[2023-05-07] MEDS: LEVOTHYROXINE 100MCG VIAL IV SCH (05:40)
[2023-05-07] MEDS: HYDROCORTISONE SOD SUCCINATE 100 MG/2 ML VIAL IV SCH ×3 (05:40→18:23)
[2023-05-07 05:50] LABS: ALBUMIN 1.2 g/dL (3.5-5.0); CREATININE 0.7 mg/dL (0.5-1.5); MAGNESIUM 1.4 mg/dL (1.80-2.40); POTASSIUM 3.5 mmol/L (3.5-5.1); TOTAL PROTEIN, SERUM 4.1 g/dL (6.0-8.3)
[2023-05-07] MEDS: HYDROXYZINE 25 MG TABLET PO SCH ×3 (09:13→21:18)
[2023-05-07] MEDS: Vitamin B Complex/Vit C/Folic Acid PO SCH (09:13)
[2023-05-07] MEDS: LACTOBACILLUS RHAMNOSUS GG 1 EACH CAP.SPRINK PO SCH ×3 (09:13→21:18)
[2023-05-07] MEDS: PANTOPRAZOLE 40 MG/VIAL IVP SCH ×2 (09:13→21:18)
[2023-05-07] MEDS: LACTOSE-REDUCED VAN/STB/CHOC 237 ML BOTTLE PO SCH ×3 (09:24→16:34)
[2023-05-07] MEDS: NYSTATIN 15 GM OINT TP PRN ×2 (10:09→21:17)
[2023-05-07] MEDS: BALSAM PERU/CASTOR OIL 60 GM TUBE TP SCH ×2 (10:09→21:17)
[2023-05-07] MEDS: FUROSEMIDE 20MG VIAL IV SCH ×2 (10:12→21:19)
[2023-05-07] MEDS: MAGNESIUM 2GM PREMIX 50ML 50 ML IV PRN (14:18)
[2023-05-07] MEDS: POTASSIUM CHLORIDE 10% ELIXIR 20 MEQ/15 ML UDCUP PO PRN (14:18)
[2023-05-08] VITALS (7 sets, daily range): BP systolic 98–134; BP diastolic 65–81; PULSE 95–115; RESP 18–20; O2SAT 96–97
[2023-05-08] MEDS: HYDROCORTISONE SOD SUCCINATE 100 MG/2 ML VIAL IV SCH ×3 (00:19→12:31)
[2023-05-08 05:13] LABS: BASOPHILS % (AUTO) 0.1 % (0.0-5.0); HEMATOCRIT 27.5 % (36-48); LYMPHOCYTES % (AUTO) 9.6 % (21.0-51.0); MEAN CORPUSCULAR HEMOGLOBIN 27.5 pg (27.0-33.0); MEAN CORPUSCULAR HGB CONC 32.4 g/dL (32.0-36.0); MEAN CORPUSCULAR VOLUME 84.9 fL (79-99); MONOCYTES % (AUTO) 5.5 % (3.0-13.0); NEUTROPHILS % (AUTO) 83.4 % (40.0-77.0); PLATELET COUNT (AUTO) 120 K/uL (130-400); RED BLOOD CELL COUNT(AUTO) 3.24 MIL/uL (4.00-5.50); RED CELL DISTRIBUTION WIDTH 22.1 % (11.0-15.5); WHITE BLOOD COUNT (AUTO) 8.8 K/uL (4.8-10.8)
[2023-05-08 05:40] LABS: ALBUMIN 1.2 g/dL (3.5-5.0); CREATININE 0.7 mg/dL (0.5-1.5); MAGNESIUM 1.7 mg/dL (1.80-2.40); POTASSIUM 3.2 mmol/L (3.5-5.1); TOTAL PROTEIN, SERUM 3.9 g/dL (6.0-8.3)
[2023-05-08] MEDS: LEVOTHYROXINE 100MCG VIAL IV SCH (05:51)
[2023-05-08] MEDS: MAGNESIUM 2GM PREMIX 50ML 50 ML IV PRN (07:22)
[2023-05-08] MEDS: KCL 20 MEQ ERTAB PO PRN (07:22)
[2023-05-08] MEDS: LACTOSE-REDUCED VAN/STB/CHOC 237 ML BOTTLE PO SCH ×3 (08:00→16:37)
[2023-05-08] MEDS: PANTOPRAZOLE 40 MG/VIAL IVP SCH ×2 (10:22→21:53)
[2023-05-08] MEDS: LACTOBACILLUS RHAMNOSUS GG 1 EACH CAP.SPRINK PO SCH ×3 (10:22→21:53)
[2023-05-08] MEDS: HYDROXYZINE 25 MG TABLET PO SCH ×3 (10:22→21:53)
[2023-05-08] MEDS: Vitamin B Complex/Vit C/Folic Acid PO SCH (10:22)
[2023-05-08] MEDS: FUROSEMIDE 20MG VIAL IV SCH ×2 (10:22→21:54)
[2023-05-08] MEDS: NYSTATIN 15 GM OINT TP PRN (10:24)
[2023-05-08] MEDS: BALSAM PERU/CASTOR OIL 60 GM TUBE TP SCH ×2 (10:25→21:54)
[2023-05-08] MEDS: POTASSIUM CHLORIDE 10% ELIXIR 20 MEQ/15 ML UDCUP PO PRN (12:31)
[2023-05-09] MEDS: HYDROCORTISONE SOD SUCCINATE 100 MG/2 ML VIAL IV SCH ×3 (00:56→12:47)
[2023-05-09 03:43] VITALS: BP 98/63; PULSE 101; RESP 20
[2023-05-09 05:06] LABS: BASOPHILS % (AUTO) 0.1 % (0.0-5.0); EOSINOPHILS % (AUTO) 0.1 % (0.0-8.0); HEMATOCRIT 28.6 % (36-48); LYMPHOCYTES % (AUTO) 8.5 % (21.0-51.0); MEAN CORPUSCULAR HEMOGLOBIN 27.2 pg (27.0-33.0); MEAN CORPUSCULAR HGB CONC 31.8 g/dL (32.0-36.0); MEAN CORPUSCULAR VOLUME 85.6 fL (79-99); MONOCYTES % (AUTO) 4.7 % (3.0-13.0); NEUTROPHILS % (AUTO) 85.6 % (40.0-77.0); PLATELET COUNT (AUTO) 131 K/uL (130-400); RED BLOOD CELL COUNT(AUTO) 3.34 MIL/uL (4.00-5.50); RED CELL DISTRIBUTION WIDTH 22.6 % (11.0-15.5); WHITE BLOOD COUNT (AUTO) 10.8 K/uL (4.8-10.8)
[2023-05-09 05:37] LABS: ALBUMIN 1.2 g/dL (3.5-5.0); CREATININE 0.8 mg/dL (0.5-1.5); MAGNESIUM 1.9 mg/dL (1.80-2.40); POTASSIUM 3.2 mmol/L (3.5-5.1)
[2023-05-09] MEDS: LEVOTHYROXINE 100MCG VIAL IV SCH (06:34)
[2023-05-09] MEDS: MAGNESIUM 2GM PREMIX 50ML 50 ML IV PRN (06:42)
[2023-05-09 08:00] VITALS: BP 92/60; PULSE 96; RESP 16; O2SAT 96
[2023-05-09] MEDS: PANTOPRAZOLE 40 MG/VIAL IVP SCH ×2 (08:29→21:29)
[2023-05-09] MEDS: HYDROXYZINE 25 MG TABLET PO SCH ×3 (08:29→21:30)
[2023-05-09] MEDS: Vitamin B Complex/Vit C/Folic Acid PO SCH (08:29)
[2023-05-09] MEDS: LACTOBACILLUS RHAMNOSUS GG 1 EACH CAP.SPRINK PO SCH ×3 (08:29→21:30)
[2023-05-09] MEDS: ACETAMINOPHEN 500 MG TABLET PO PRN (08:30)
[2023-05-09] MEDS: LACTOSE-REDUCED VAN/STB/CHOC 237 ML BOTTLE PO SCH ×3 (08:35→16:48)
[2023-05-09] MEDS: BALSAM PERU/CASTOR OIL 60 GM TUBE TP SCH ×2 (11:56→21:31)
[2023-05-09 12:00] VITALS: BP 98/68; PULSE 100; RESP 16
[2023-05-09] MEDS: FUROSEMIDE 20MG VIAL IV SCH ×2 (12:51→22:27)
[2023-05-09 20:00] VITALS: BP 95/59; PULSE 98; RESP 18
[2023-05-09 20:30] VITALS: O2SAT 94
[2023-05-09] MEDS: POTASSIUM CHLORIDE 20MEQ/100ML 100 ML IV PRN (22:27)
[2023-05-10] VITALS (8 sets, daily range): BP systolic 100–104; BP diastolic 61–75; PULSE 79–103; RESP 16–20; O2SAT 94–98
[2023-05-10] MEDS: HYDROCORTISONE SOD SUCCINATE 100 MG/2 ML VIAL IV SCH ×4 (00:12→18:24)
[2023-05-10] MEDS: POTASSIUM CHLORIDE 20MEQ/100ML 100 ML IV PRN ×3 (02:20→22:40)
[2023-05-10] MEDS: LEVOTHYROXINE 100MCG VIAL IV SCH (05:44)
[2023-05-10 06:27] LABS: LYMPHOCYTES % (AUTO) 7.7 % (21.0-51.0); MEAN CORPUSCULAR HGB CONC 31.4 g/dL (32.0-36.0); MEAN CORPUSCULAR VOLUME 85.9 fL (79-99); MONOCYTES % (AUTO) 4.4 % (3.0-13.0); NEUTROPHILS % (AUTO) 87.3 % (40.0-77.0); PLATELET COUNT (AUTO) 123 K/uL (130-400); RED BLOOD CELL COUNT(AUTO) 3.26 MIL/uL (4.00-5.50); RED CELL DISTRIBUTION WIDTH 22.5 % (11.0-15.5)
[2023-05-10 06:47] LABS: ALBUMIN 1.1 g/dL (3.5-5.0); CREATININE 0.6 mg/dL (0.5-1.5); POTASSIUM 3.3 mmol/L (3.5-5.1)
[2023-05-10] MEDS: LACTOSE-REDUCED VAN/STB/CHOC 237 ML BOTTLE PO SCH ×3 (08:00→17:00)
[2023-05-10] MEDS: HYDROXYZINE 25 MG TABLET PO SCH ×3 (10:05→20:05)
[2023-05-10] MEDS: LACTOBACILLUS RHAMNOSUS GG 1 EACH CAP.SPRINK PO SCH ×3 (10:06→20:06)
[2023-05-10] MEDS: FUROSEMIDE 20MG VIAL IV SCH ×2 (10:06→22:38)
[2023-05-10] MEDS: PANTOPRAZOLE 40 MG/VIAL IVP SCH ×2 (10:06→20:04)
[2023-05-10] MEDS: Vitamin B Complex/Vit C/Folic Acid PO SCH (10:06)
[2023-05-10] MEDS: BALSAM PERU/CASTOR OIL 60 GM TUBE TP SCH ×2 (10:10→20:11)
[2023-05-10] MEDS ORDERED: ACETAMINOPHEN WITH CODEINE 1 TAB TAB PO STA (17:54)
[2023-05-10] MEDS: NYSTATIN 15 GM OINT TP PRN (20:10)
[2023-05-11] VITALS (7 sets, daily range): BP systolic 104–136; BP diastolic 72–79; PULSE 65–98; RESP 16–20; O2SAT 96–98
[2023-05-11] MEDS: HYDROCORTISONE SOD SUCCINATE 100 MG/2 ML VIAL IV SCH ×4 (00:13→18:03)
[2023-05-11] MEDS ORDERED: ACETAMINOPHEN WITH CODEINE 1 TAB TAB PO ONE (03:30)
[2023-05-11 04:43] LABS: BASOPHILS % (AUTO) 0.2 % (0.0-5.0); LYMPHOCYTES % (AUTO) 14.3 % (21.0-51.0); MEAN CORPUSCULAR HEMOGLOBIN 27.3 pg (27.0-33.0); MEAN CORPUSCULAR HGB CONC 31.9 g/dL (32.0-36.0); MEAN CORPUSCULAR VOLUME 85.5 fL (79-99); MONOCYTES % (AUTO) 6.8 % (3.0-13.0); NEUTROPHILS % (AUTO) 78.1 % (40.0-77.0); PLATELET COUNT (AUTO) 139 K/uL (130-400); RED BLOOD CELL COUNT(AUTO) 3.04 MIL/uL (4.00-5.50); RED CELL DISTRIBUTION WIDTH 22.6 % (11.0-15.5); WHITE BLOOD COUNT (AUTO) 6.4 K/uL (4.8-10.8)
[2023-05-11 05:06] LABS: ALBUMIN 1.1 g/dL (3.5-5.0); CREATININE 0.6 mg/dL (0.5-1.5); MAGNESIUM 1.8 mg/dL (1.80-2.40); POTASSIUM 3.8 mmol/L (3.5-5.1); TOTAL PROTEIN, SERUM 4.1 g/dL (6.0-8.3)
[2023-05-11] MEDS: LEVOTHYROXINE 100MCG VIAL IV SCH (05:53)
[2023-05-11] MEDS: PANTOPRAZOLE 40 MG/VIAL IVP SCH ×2 (08:53→21:12)
[2023-05-11] MEDS: HYDROXYZINE 25 MG TABLET PO SCH ×3 (08:53→21:12)
[2023-05-11] MEDS: LACTOSE-REDUCED VAN/STB/CHOC 237 ML BOTTLE PO SCH ×3 (08:54→17:33)
[2023-05-11] MEDS: LACTOBACILLUS RHAMNOSUS GG 1 EACH CAP.SPRINK PO SCH ×3 (08:54→21:12)
[2023-05-11] MEDS: NYSTATIN 15 GM OINT TP PRN (08:54)
[2023-05-11] MEDS: Vitamin B Complex/Vit C/Folic Acid PO SCH (08:54)
[2023-05-11] MEDS: BALSAM PERU/CASTOR OIL 60 GM TUBE TP SCH ×2 (08:55→21:13)
[2023-05-11] MEDS: FUROSEMIDE 20MG VIAL IV SCH ×2 (08:56→21:12)
[2023-05-11] MEDS: ACETAMINOPHEN WITH CODEINE 1 TAB TAB PO PRN ×2 (13:29→18:44)
[2023-05-12] VITALS (9 sets, daily range): BP systolic 96–118; BP diastolic 67–78; PULSE 90–111; RESP 16–19; O2SAT 98–99
[2023-05-12] MEDS: HYDROCORTISONE SOD SUCCINATE 100 MG/2 ML VIAL IV SCH ×4 (01:05→17:52)
[2023-05-12] MEDS: ACETAMINOPHEN WITH CODEINE 1 TAB TAB PO PRN ×4 (01:15→18:47)
[2023-05-12] MEDS: LEVOTHYROXINE 100MCG VIAL IV SCH (06:47)
[2023-05-12] MEDS: PANTOPRAZOLE 40 MG/VIAL IVP SCH ×2 (08:24→21:08)
[2023-05-12] MEDS: LACTOBACILLUS RHAMNOSUS GG 1 EACH CAP.SPRINK PO SCH ×3 (08:26→21:08)
[2023-05-12] MEDS: HYDROXYZINE 25 MG TABLET PO SCH ×3 (08:26→21:08)
[2023-05-12] MEDS: BALSAM PERU/CASTOR OIL 60 GM TUBE TP SCH ×2 (08:27→21:15)
[2023-05-12] MEDS: LACTOSE-REDUCED VAN/STB/CHOC 237 ML BOTTLE PO SCH ×3 (08:27→17:18)
[2023-05-12] MEDS: Vitamin B Complex/Vit C/Folic Acid PO SCH (08:27)
[2023-05-12] MEDS: FUROSEMIDE 20MG VIAL IV SCH ×2 (10:43→21:09)
[2023-05-13] MEDS: ACETAMINOPHEN WITH CODEINE 1 TAB TAB PO PRN ×3 (00:36→13:15)
[2023-05-13] MEDS: HYDROCORTISONE SOD SUCCINATE 100 MG/2 ML VIAL IV SCH ×5 (00:36→23:58)
[2023-05-13 04:00] VITALS: BP 106/69; PULSE 100; RESP 16
[2023-05-13] MEDS: LEVOTHYROXINE 100MCG VIAL IV SCH (06:35)
[2023-05-13 08:00] VITALS: BP 102/65; PULSE 98; RESP 18
[2023-05-13] MEDS: LACTOSE-REDUCED VAN/STB/CHOC 237 ML BOTTLE PO SCH ×3 (08:00→18:28)
[2023-05-13] MEDS: BALSAM PERU/CASTOR OIL 60 GM TUBE TP SCH ×2 (09:00→21:14)
[2023-05-13] MEDS ORDERED: MORPHINE 2 MG SYG IVP ONE (10:44)
[2023-05-13] MEDS: HYDROXYZINE 25 MG TABLET PO SCH ×3 (10:54→21:13)
[2023-05-13] MEDS: PANTOPRAZOLE 40 MG/VIAL IVP SCH ×2 (10:55→21:14)
[2023-05-13] MEDS: LACTOBACILLUS RHAMNOSUS GG 1 EACH CAP.SPRINK PO SCH ×3 (10:55→21:13)
[2023-05-13] MEDS: NYSTATIN 15 GM OINT TP PRN (10:56)
[2023-05-13] MEDS: FUROSEMIDE 20MG VIAL IV SCH ×2 (11:01→21:15)
[2023-05-13 11:30] VITALS: BP 102/67; PULSE 94; RESP 17
[2023-05-13] MEDS: Vitamin B Complex/Vit C/Folic Acid PO SCH (13:11)
[2023-05-13] MEDS: MAGNESIUM 2GM PREMIX 50ML 50 ML IV PRN (13:21)
[2023-05-13] MEDS: LACTULOSE 20 GM/30 ML UDCUP PO PRN (13:22)
[2023-05-13 16:00] VITALS: BP 115/73; PULSE 75; RESP 16
[2023-05-13] MEDS: HYDROCODONE/ACETAMINOPHEN 5/325 MG TAB PO PRN (18:27)
[2023-05-13 19:00] VITALS: BP 120/80; PULSE 99; RESP 16
[2023-05-13 20:00] VITALS: O2SAT 99
[2023-05-13] MEDS: DOCUSATE SODIUM 100 MG CAP PO SCH (21:13)
[2023-05-14] VITALS (9 sets, daily range): BP systolic 105–142; BP diastolic 71–95; PULSE 90–99; RESP 16–18; O2SAT 95
[2023-05-14] MEDS: LEVOTHYROXINE 100MCG VIAL IV SCH (05:52)
[2023-05-14] MEDS: HYDROCORTISONE SOD SUCCINATE 100 MG/2 ML VIAL IV SCH ×3 (05:52→20:03)
[2023-05-14] MEDS: HYDROCODONE/ACETAMINOPHEN 5/325 MG TAB PO PRN ×2 (09:32→21:02)
[2023-05-14] MEDS: LACTOBACILLUS RHAMNOSUS GG 1 EACH CAP.SPRINK PO SCH ×3 (09:34→20:57)
[2023-05-14] MEDS: DOCUSATE SODIUM 100 MG CAP PO SCH ×2 (09:34→20:57)
[2023-05-14] MEDS: NYSTATIN 15 GM OINT TP PRN (09:34)
[2023-05-14] MEDS: PANTOPRAZOLE 40 MG/VIAL IVP SCH ×2 (09:34→20:57)
[2023-05-14] MEDS: HYDROXYZINE 25 MG TABLET PO SCH ×3 (09:34→20:57)
[2023-05-14] MEDS: LACTOSE-REDUCED VAN/STB/CHOC 237 ML BOTTLE PO SCH ×3 (09:34→17:26)
[2023-05-14] MEDS: BALSAM PERU/CASTOR OIL 60 GM TUBE TP SCH ×2 (09:35→20:57)
[2023-05-14] MEDS: FUROSEMIDE 20MG VIAL IV SCH ×2 (09:41→22:18)
[2023-05-14] MEDS: Vitamin B Complex/Vit C/Folic Acid PO SCH (12:26)
[2023-05-14] MEDS: ACETAMINOPHEN 500 MG TABLET PO PRN (14:36)
[2023-05-15] MEDS: HYDROCORTISONE SOD SUCCINATE 100 MG/2 ML VIAL IV SCH ×4 (00:14→18:16)
[2023-05-15] MEDS: LACTULOSE 20 GM/30 ML UDCUP PO PRN (00:19)
[2023-05-15] MEDS: HYDROCODONE/ACETAMINOPHEN 5/325 MG TAB PO PRN ×2 (03:21→17:33)
[2023-05-15 03:39] VITALS: BP 122/79; PULSE 94; RESP 16
[2023-05-15] MEDS: LEVOTHYROXINE 100MCG VIAL IV SCH (06:06)
[2023-05-15 08:00] VITALS: BP 128/84; PULSE 93; RESP 18; O2SAT 98
[2023-05-15 08:47] LABS: BASOPHILS % (AUTO) 0.4 % (0.0-5.0); HEMATOCRIT 27.9 % (36-48); LYMPHOCYTES % (AUTO) 10.5 % (21.0-51.0); MEAN CORPUSCULAR HEMOGLOBIN 27.4 pg (27.0-33.0); MEAN CORPUSCULAR HGB CONC 31.2 g/dL (32.0-36.0); MEAN CORPUSCULAR VOLUME 87.7 fL (79-99); MONOCYTES % (AUTO) 4.3 % (3.0-13.0); NEUTROPHILS % (AUTO) 84.6 % (40.0-77.0); PLATELET COUNT (AUTO) 170 K/uL (130-400); RED BLOOD CELL COUNT(AUTO) 3.18 MIL/uL (4.00-5.50); RED CELL DISTRIBUTION WIDTH 21.7 % (11.0-15.5); WHITE BLOOD COUNT (AUTO) 5.6 K/uL (4.8-10.8)
[2023-05-15] MEDS: DOCUSATE SODIUM 100 MG CAP PO SCH ×2 (09:00→21:00)
[2023-05-15] MEDS: LACTOBACILLUS RHAMNOSUS GG 1 EACH CAP.SPRINK PO SCH ×3 (09:00→21:00)
[2023-05-15] MEDS: Vitamin B Complex/Vit C/Folic Acid PO SCH (09:00)
[2023-05-15] MEDS: HYDROXYZINE 25 MG TABLET PO SCH ×3 (09:00→21:00)
[2023-05-15] MEDS: PANTOPRAZOLE 40 MG/VIAL IVP SCH ×2 (09:00→21:00)
[2023-05-15] MEDS: LACTOSE-REDUCED VAN/STB/CHOC 237 ML BOTTLE PO SCH ×3 (09:01→17:01)
[2023-05-15 09:05] LABS: ALBUMIN 1.1 g/dL (3.5-5.0); CREATININE 0.8 mg/dL (0.5-1.5); MAGNESIUM 1.9 mg/dL (1.80-2.40); TOTAL PROTEIN, SERUM 4.5 g/dL (6.0-8.3)
[2023-05-15 09:12] LABS: POTASSIUM 2.6 mmol/L (3.5-5.1)
[2023-05-15] MEDS: FUROSEMIDE 20MG VIAL IV SCH ×2 (09:42→22:41)
[2023-05-15 12:06] VITALS: BP 135/89; PULSE 90; RESP 18
[2023-05-15] MEDS: PHARMACY COMMUNICATION MISC SCH ×10 (13:30→23:30)
[2023-05-15] MEDS: POTASSIUM CHLORIDE 10% ELIXIR 20 MEQ/15 ML UDCUP PO PRN ×2 (13:35→17:05)
[2023-05-15 16:00] VITALS: BP 118/71; PULSE 87; RESP 16
[2023-05-15] MEDS: MAGNESIUM 2GM PREMIX 50ML 50 ML IV PRN (17:07)
[2023-05-15] MEDS: BALSAM PERU/CASTOR OIL 60 GM TUBE TP SCH ×2 (17:21→21:00)
[2023-05-15] MEDS: KCL 20 MEQ ERTAB PO PRN (18:18)
[2023-05-15 20:00] VITALS: BP 127/74; PULSE 88; RESP 18
[2023-05-15 21:00] VITALS: O2SAT 98
[2023-05-15] MEDS ORDERED: IRON SUCROSE COMPLEX 300 MG in 0.9% NACL 250ML 250 ML IV ONE (21:00)
[2023-05-15] MEDS: ALBUMIN (HUMAN) 25% 50 ML IV SCH ×2 (21:35→22:00)
[2023-05-16] VITALS (9 sets, daily range): BP systolic 86–137; BP diastolic 55–95; PULSE 86–101; RESP 18–20; O2SAT 98–100
[2023-05-16] MEDS: PHARMACY COMMUNICATION MISC SCH ×24 (00:30→23:30)
[2023-05-16] MEDS: HYDROCORTISONE SOD SUCCINATE 100 MG/2 ML VIAL IV SCH ×4 (01:00→18:25)
[2023-05-16] MEDS: LEVOTHYROXINE 100MCG VIAL IV SCH (05:19)
[2023-05-16] MEDS: HYDROCODONE/ACETAMINOPHEN 5/325 MG TAB PO PRN ×3 (05:20→20:57)
[2023-05-16] MEDS: ALBUMIN (HUMAN) 25% 50 ML IV SCH (05:20)
[2023-05-16 05:25] LABS: BASOPHILS % (AUTO) 0.2 % (0.0-5.0); HEMATOCRIT 26.7 % (36-48); MEAN CORPUSCULAR HEMOGLOBIN 26.8 pg (27.0-33.0); MEAN CORPUSCULAR HGB CONC 31.5 g/dL (32.0-36.0); NEUTROPHILS % (AUTO) 85.3 % (40.0-77.0); PLATELET COUNT (AUTO) 173 K/uL (130-400); RED BLOOD CELL COUNT(AUTO) 3.14 MIL/uL (4.00-5.50); RED CELL DISTRIBUTION WIDTH 21.8 % (11.0-15.5)
[2023-05-16 05:34] LABS: CREATININE 0.7 mg/dL (0.5-1.5); TOTAL PROTEIN, SERUM 4.3 g/dL (6.0-8.3)
[2023-05-16 05:45] LABS: B-TYPE NATRIURETIC PEPTIDE 727 pg/mL (0-100)
[2023-05-16 05:46] LABS: POTASSIUM 2.9 mmol/L (3.5-5.1)
[2023-05-16] MEDS: POTASSIUM CHLORIDE 20MEQ/100ML 100 ML IV PRN (05:55)
[2023-05-16] MEDS ORDERED: ALBUMIN (HUMAN) 25% 100 ML IV SCH (09:10)
[2023-05-16] MEDS: DOCUSATE SODIUM 100 MG CAP PO SCH ×2 (09:42→20:22)
[2023-05-16] MEDS: HYDROXYZINE 25 MG TABLET PO SCH ×3 (09:42→20:23)
[2023-05-16] MEDS: LACTOBACILLUS RHAMNOSUS GG 1 EACH CAP.SPRINK PO SCH ×3 (09:42→20:22)
[2023-05-16] MEDS: PANTOPRAZOLE 40 MG/VIAL IVP SCH ×2 (09:42→20:23)
[2023-05-16] MEDS: FUROSEMIDE 20MG VIAL IV SCH ×2 (09:42→22:45)
[2023-05-16] MEDS: LACTOSE-REDUCED VAN/STB/CHOC 237 ML BOTTLE PO SCH ×3 (09:43→18:23)
[2023-05-16] MEDS: ALBUMIN (HUMAN) 25% 100 ML IV SCH ×2 (10:05→18:25)
[2023-05-16] MEDS: Vitamin B Complex/Vit C/Folic Acid PO SCH (10:10)
[2023-05-16] MEDS: BALSAM PERU/CASTOR OIL 60 GM TUBE TP SCH ×2 (11:59→21:00)
[2023-05-16] MEDS: KCL 20 MEQ ERTAB PO PRN ×3 (13:54→20:30)
[2023-05-17] VITALS (8 sets, daily range): BP systolic 77–129; BP diastolic 46–68; PULSE 91–100; RESP 16–18; O2SAT 96–97
[2023-05-17] MEDS: HYDROCORTISONE SOD SUCCINATE 100 MG/2 ML VIAL IV SCH ×4 (00:17→17:22)
[2023-05-17] MEDS: PHARMACY COMMUNICATION MISC SCH ×24 (00:20→22:52)
[2023-05-17] MEDS: ALBUMIN (HUMAN) 25% 100 ML IV SCH (02:20)
[2023-05-17] MEDS: BALSAM PERU/CASTOR OIL 60 GM TUBE TP SCH ×2 (04:05→21:53)
[2023-05-17] MEDS: LEVOTHYROXINE 100MCG VIAL IV SCH (06:24)
[2023-05-17] MEDS: DOCUSATE SODIUM 100 MG CAP PO SCH ×2 (09:00→21:00)
[2023-05-17] MEDS: FUROSEMIDE 20MG VIAL IV SCH ×2 (09:43→21:16)
[2023-05-17] MEDS: HYDROXYZINE 25 MG TABLET PO SCH ×3 (09:43→21:16)
[2023-05-17] MEDS: Vitamin B Complex/Vit C/Folic Acid PO SCH (09:43)
[2023-05-17] MEDS: LACTOBACILLUS RHAMNOSUS GG 1 EACH CAP.SPRINK PO SCH ×3 (09:43→21:16)
[2023-05-17] MEDS: PANTOPRAZOLE 40 MG/VIAL IVP SCH ×2 (09:43→21:16)
[2023-05-17] MEDS: LACTOSE-REDUCED VAN/STB/CHOC 237 ML BOTTLE PO SCH ×3 (09:44→17:02)
[2023-05-17 10:03] LABS: APPEARANCE,URINE CLOUDY (CLEAR); BILIRUBIN,URINE NEGATIVE (NEGATIVE); COLOR,URINE YELLOW (YELLOW); GLUCOSE, URINE (UA) NEGATIVE (NEGATIVE); KETONES,URINE NEGATIVE (NEGATIVE); LEUKOCYTE ESTERASE ,URINE 500 Leu/uL (NEGATIVE); NITRATE,URINE NEGATIVE (NEGATIVE); PROTEIN,URINE 30 mg/dL (NEGATIVE); UROBILINOGEN,URINE 3 mg/dL (0.2-1.0)
[2023-05-17 10:08] LABS: BACTERIA,URINE RARE /HPF (None Seen); MUCUS,URINE RARE LPF (None Seen); RBC,URINE 26-50 /HPF (0-1); YEAST,URINE BUDDING MANY /HPF (None Seen)
[2023-05-17] MEDS: NYSTATIN 100000 UNIT/ML 5ML UDCUP PO SCH ×2 (12:23→17:03)
[2023-05-17] MEDS: KCL 20 MEQ ERTAB PO PRN ×3 (14:17→22:01)
[2023-05-18] MEDS: KCL 20 MEQ ERTAB PO PRN ×4 (00:13→15:22)
[2023-05-18] MEDS: HYDROCORTISONE SOD SUCCINATE 100 MG/2 ML VIAL IV SCH ×3 (00:13→12:10)
[2023-05-18] MEDS: POTASSIUM CHLORIDE 20MEQ/100ML 100 ML IV PRN (00:13)
[2023-05-18] MEDS: PHARMACY COMMUNICATION MISC SCH ×2 (00:28→01:09)
[2023-05-18] MEDS: NYSTATIN 100000 UNIT/ML 5ML UDCUP PO SCH ×2 (01:33→08:41)
[2023-05-18 03:31] VITALS: BP 97/70; PULSE 85; RESP 16
[2023-05-18] MEDS: LEVOTHYROXINE 100MCG VIAL IV SCH (06:10)
[2023-05-18 06:12] LABS: BASOPHILS % (AUTO) 0.2 % (0.0-5.0); HEMATOCRIT 21.9 % (36-48); LYMPHOCYTES % (AUTO) 13.7 % (21.0-51.0); MEAN CORPUSCULAR HEMOGLOBIN 27.2 pg (27.0-33.0); MEAN CORPUSCULAR HGB CONC 30.6 g/dL (32.0-36.0); MONOCYTES % (AUTO) 4.9 % (3.0-13.0); NEUTROPHILS % (AUTO) 80.9 % (40.0-77.0); PLATELET COUNT (AUTO) 155 K/uL (130-400); RED BLOOD CELL COUNT(AUTO) 2.46 MIL/uL (4.00-5.50); RED CELL DISTRIBUTION WIDTH 21.3 % (11.0-15.5); WHITE BLOOD COUNT (AUTO) 5.8 K/uL (4.8-10.8)
[2023-05-18 06:15] LABS: CREATININE 0.6 mg/dL (0.5-1.5); POTASSIUM 3.7 mmol/L (3.5-5.1)
[2023-05-18 06:19] LABS: ALBUMIN 1.7 g/dL (3.5-5.0); MAGNESIUM 1.9 mg/dL (1.80-2.40); TOTAL PROTEIN, SERUM 4.3 g/dL (6.0-8.3)
[2023-05-18 08:00] VITALS: BP 83/59; PULSE 84; RESP 18; O2SAT 100
[2023-05-18] MEDS: HYDROCODONE/ACETAMINOPHEN 5/325 MG TAB PO PRN (08:08)
[2023-05-18] MEDS: LACTOSE-REDUCED VAN/STB/CHOC 237 ML BOTTLE PO SCH ×3 (08:09→17:00)
[2023-05-18] MEDS ORDERED: LOPERAMIDE 1 MG/7.5 ML UDCUP PO PRN (08:30)
[2023-05-18] MEDS: HYDROXYZINE 25 MG TABLET PO SCH ×3 (08:41→20:15)
[2023-05-18] MEDS: PANTOPRAZOLE 40 MG/VIAL IVP SCH ×2 (08:41→20:16)
[2023-05-18] MEDS: LACTOBACILLUS RHAMNOSUS GG 1 EACH CAP.SPRINK PO SCH ×3 (08:41→20:15)
[2023-05-18] MEDS: Vitamin B Complex/Vit C/Folic Acid PO SCH (08:41)
[2023-05-18] MEDS: LEVOFLOXACIN 500 MG/D5W 100 ML 100 ML IV SCH (08:41)
[2023-05-18] MEDS: DOCUSATE SODIUM 100 MG CAP PO SCH (08:42)
[2023-05-18] MEDS: BALSAM PERU/CASTOR OIL 60 GM TUBE TP SCH ×2 (08:43→20:17)
[2023-05-18] MEDS: FUROSEMIDE 20MG VIAL IV SCH ×2 (08:44→21:59)
[2023-05-18 09:37] LABS: HEMATOCRIT 24.6 % (36-48)
[2023-05-18 12:00] VITALS: BP 85/64; PULSE 97; RESP 16
[2023-05-18] MEDS: MAGNESIUM 2GM PREMIX 50ML 50 ML IV PRN (12:12)
[2023-05-18 19:59] VITALS: BP 94/65; PULSE 96; RESP 18
[2023-05-18 20:00] VITALS: O2SAT 94
[2023-05-18 23:27] VITALS: BP 89/57; PULSE 91; RESP 18
[2023-05-18 23:42] LABS: HEMATOCRIT 21.1 % (36-48)
[2023-05-19] VITALS (7 sets, daily range): BP systolic 100–136; BP diastolic 67–84; PULSE 84–109; RESP 18–22; O2SAT 94–96
[2023-05-19] MEDS: HYDROCORTISONE SOD SUCCINATE 100 MG/2 ML VIAL IV SCH ×2 (00:06→05:46)
[2023-05-19] MEDS: NYSTATIN 100000 UNIT/ML 5ML UDCUP PO SCH ×3 (02:33→17:40)
[2023-05-19] MEDS: LEVOTHYROXINE 100MCG VIAL IV SCH (05:46)
[2023-05-19 07:08] LABS: BASOPHILS % (AUTO) 0.6 % (0.0-5.0); HEMATOCRIT 27.2 % (36-48); LYMPHOCYTES % (AUTO) 15.3 % (21.0-51.0); MEAN CORPUSCULAR HEMOGLOBIN 27.7 pg (27.0-33.0); MEAN CORPUSCULAR HGB CONC 31.6 g/dL (32.0-36.0); MEAN CORPUSCULAR VOLUME 87.5 fL (79-99); MONOCYTES % (AUTO) 6.8 % (3.0-13.0); NEUTROPHILS % (AUTO) 76.6 % (40.0-77.0); PLATELET COUNT (AUTO) 105 K/uL (130-400); RED BLOOD CELL COUNT(AUTO) 3.11 MIL/uL (4.00-5.50); RED CELL DISTRIBUTION WIDTH 20.2 % (11.0-15.5); WHITE BLOOD COUNT (AUTO) 5.4 K/uL (4.8-10.8)
[2023-05-19 07:34] LABS: ALBUMIN 1.6 g/dL (3.5-5.0); CREATININE 0.5 mg/dL (0.5-1.5); MAGNESIUM 2.2 mg/dL (1.80-2.40); POTASSIUM 3.8 mmol/L (3.5-5.1); TOTAL PROTEIN, SERUM 4.2 g/dL (6.0-8.3)
[2023-05-19] MEDS: LACTOSE-REDUCED VAN/STB/CHOC 237 ML BOTTLE PO SCH ×3 (08:00→17:00)
[2023-05-19] MEDS: LEVOFLOXACIN 500 MG/D5W 100 ML 100 ML IV SCH (09:01)
[2023-05-19] MEDS: Vitamin B Complex/Vit C/Folic Acid PO SCH (09:01)
[2023-05-19] MEDS: LACTOBACILLUS RHAMNOSUS GG 1 EACH CAP.SPRINK PO SCH ×3 (09:01→20:50)
[2023-05-19] MEDS: HYDROXYZINE 25 MG TABLET PO SCH ×3 (09:01→20:51)
[2023-05-19] MEDS: BALSAM PERU/CASTOR OIL 60 GM TUBE TP SCH ×2 (09:02→20:51)
[2023-05-19] MEDS: FUROSEMIDE 20MG VIAL IV SCH ×2 (09:34→20:54)
[2023-05-20] VITALS (7 sets, daily range): BP systolic 107–130; BP diastolic 47–80; PULSE 91–105; RESP 18–20; O2SAT 96
[2023-05-20] MEDS: NYSTATIN 100000 UNIT/ML 5ML UDCUP PO SCH ×5 (01:22→23:43)
[2023-05-20] MEDS: LEVOTHYROXINE 100MCG VIAL IV SCH (06:36)
[2023-05-20] MEDS: LACTOSE-REDUCED VAN/STB/CHOC 237 ML BOTTLE PO SCH ×3 (08:00→17:00)
[2023-05-20] MEDS: HYDROXYZINE 25 MG TABLET PO SCH ×4 (09:00→19:50)
[2023-05-20] MEDS: LACTOBACILLUS RHAMNOSUS GG 1 EACH CAP.SPRINK PO SCH ×3 (09:00→14:00)
[2023-05-20] MEDS: Vitamin B Complex/Vit C/Folic Acid PO SCH ×2 (09:00→09:22)
[2023-05-20] MEDS: BALSAM PERU/CASTOR OIL 60 GM TUBE TP SCH ×2 (09:22→19:50)
[2023-05-20] MEDS: FUROSEMIDE 20MG VIAL IV SCH ×2 (11:50→19:50)
[2023-05-21] VITALS (9 sets, daily range): BP systolic 109–122; BP diastolic 64–82; PULSE 74–107; RESP 15–19; O2SAT 96
[2023-05-21] MEDS: LEVOTHYROXINE 100MCG VIAL IV SCH (06:30)
[2023-05-21 08:16] LABS: HEMATOCRIT 28.7 % (36-48); MEAN CORPUSCULAR HEMOGLOBIN 27.7 pg (27.0-33.0); MEAN CORPUSCULAR VOLUME 89.4 fL (79-99); RED BLOOD CELL COUNT(AUTO) 3.21 MIL/uL (4.00-5.50); RED CELL DISTRIBUTION WIDTH 19.5 % (11.0-15.5); WHITE BLOOD COUNT (AUTO) 5.2 K/uL (4.8-10.8)
[2023-05-21] MEDS: NYSTATIN 100000 UNIT/ML 5ML UDCUP PO SCH ×2 (08:26→16:30)
[2023-05-21] MEDS: HYDROXYZINE 25 MG TABLET PO SCH ×3 (08:26→23:53)
[2023-05-21] MEDS: Vitamin B Complex/Vit C/Folic Acid PO SCH (08:26)
[2023-05-21] MEDS: LACTOSE-REDUCED VAN/STB/CHOC 237 ML BOTTLE PO SCH ×3 (08:27→17:00)
[2023-05-21] MEDS: BALSAM PERU/CASTOR OIL 60 GM TUBE TP SCH ×2 (08:28→23:54)
[2023-05-21 08:34] LABS: ALBUMIN 1.4 g/dL (3.5-5.0); CREATININE 0.5 mg/dL (0.5-1.5); TOTAL PROTEIN, SERUM 4.3 g/dL (6.0-8.3)
[2023-05-21 08:40] LABS: POTASSIUM 2.8 mmol/L (3.5-5.1)
[2023-05-21] MEDS: FUROSEMIDE 20MG VIAL IV SCH ×2 (10:06→23:55)
[2023-05-21] MEDS: POTASSIUM CHLORIDE 20MEQ/100ML 100 ML IV PRN (10:07)
[2023-05-21] MEDS: KCL 20 MEQ ERTAB PO PRN ×4 (10:07→18:44)
[2023-05-21] MEDS: ACETAMINOPHEN 500 MG TABLET PO PRN ×2 (11:12→18:51)
[2023-05-21] MEDS ORDERED: LOPERAMIDE HCL 2 MG CAP PO ONE (20:30)
[2023-05-21 20:52] LABS: CREATININE 0.7 mg/dL (0.5-1.5); POTASSIUM 3.5 mmol/L (3.5-5.1)
[2023-05-22] VITALS (8 sets, daily range): BP systolic 104–139; BP diastolic 60–74; PULSE 93–112; RESP 16–18; O2SAT 96
[2023-05-22] MEDS: NYSTATIN 100000 UNIT/ML 5ML UDCUP PO SCH ×4 (00:06→23:55)
[2023-05-22 05:02] LABS: BASOPHILS % (AUTO) 0.2 % (0.0-5.0); EOSINOPHILS % (AUTO) 0.6 % (0.0-8.0); LYMPHOCYTES % (AUTO) 17.5 % (21.0-51.0); MEAN CORPUSCULAR HEMOGLOBIN 27.3 pg (27.0-33.0); MEAN CORPUSCULAR HGB CONC 30.8 g/dL (32.0-36.0); MEAN CORPUSCULAR VOLUME 88.7 fL (79-99); MONOCYTES % (AUTO) 7.5 % (3.0-13.0); NEUTROPHILS % (AUTO) 73.4 % (40.0-77.0); PLATELET COUNT (AUTO) 107 K/uL (130-400); RED BLOOD CELL COUNT(AUTO) 2.93 MIL/uL (4.00-5.50); WHITE BLOOD COUNT (AUTO) 5.1 K/uL (4.8-10.8)
[2023-05-22 05:21] LABS: CREATININE 0.6 mg/dL (0.5-1.5); MAGNESIUM 1.7 mg/dL (1.80-2.40); PHOSPHORUS 2.9 mg/dL (2.5-4.9); POTASSIUM 3.4 mmol/L (3.5-5.1)
[2023-05-22] MEDS: LEVOTHYROXINE 100MCG VIAL IV SCH (06:54)
[2023-05-22] MEDS: KCL 20 MEQ ERTAB PO PRN ×2 (06:55→21:17)
[2023-05-22] MEDS: MAGNESIUM 2GM PREMIX 50ML 50 ML IV PRN (07:00)
[2023-05-22] MEDS: Vitamin B Complex/Vit C/Folic Acid PO SCH (09:34)
[2023-05-22] MEDS: HYDROXYZINE 25 MG TABLET PO SCH ×3 (09:34→21:16)
[2023-05-22] MEDS: BALSAM PERU/CASTOR OIL 60 GM TUBE TP SCH (09:38)
[2023-05-22] MEDS: ACETAMINOPHEN 500 MG TABLET PO PRN ×2 (09:38→17:23)
[2023-05-22] MEDS: FUROSEMIDE 20MG VIAL IV SCH ×2 (10:17→21:17)
[2023-05-23] MEDS: LEVOTHYROXINE 100MCG VIAL IV SCH (04:46)
[2023-05-23] MEDS: ACETAMINOPHEN 500 MG TABLET PO PRN (04:46)
[2023-05-23 05:00] VITALS: BP 117/63; PULSE 103; RESP 16
[2023-05-23 05:42] LABS: CREATININE 0.6 mg/dL (0.5-1.5); MAGNESIUM 1.8 mg/dL (1.80-2.40); POTASSIUM 3.3 mmol/L (3.5-5.1)
[2023-05-23] MEDS: POTASSIUM CHLORIDE 10% ELIXIR 20 MEQ/15 ML UDCUP PO PRN ×2 (07:00→21:33)
[2023-05-23] MEDS: MAGNESIUM 2GM PREMIX 50ML 50 ML IV PRN (07:01)
[2023-05-23 08:00] VITALS: BP 117/73; PULSE 104; RESP 18
[2023-05-23] MEDS: NYSTATIN 100000 UNIT/ML 5ML UDCUP PO SCH ×2 (10:17→18:02)
[2023-05-23] MEDS: Vitamin B Complex/Vit C/Folic Acid PO SCH (10:18)
[2023-05-23] MEDS: KCL 20 MEQ ERTAB PO PRN (10:19)
[2023-05-23] MEDS: FUROSEMIDE 20MG VIAL IV SCH ×2 (10:19→21:33)
[2023-05-23] MEDS: HYDROXYZINE 25 MG TABLET PO SCH ×3 (10:19→21:33)
[2023-05-23 11:34] VITALS: BP 108/57; PULSE 105; RESP 18
[2023-05-23 15:56] VITALS: BP 105/66; PULSE 109; RESP 18
[2023-05-23 20:00] VITALS: BP 101/59; PULSE 107; RESP 18
[2023-05-23 20:45] VITALS: O2SAT 97
[2023-05-24] VITALS: BP 104/62; PULSE 96; RESP 18
[2023-05-24] MEDS: NYSTATIN 100000 UNIT/ML 5ML UDCUP PO SCH ×3 (01:18→16:17)
[2023-05-24 04:00] VITALS: BP 101/71; PULSE 101; RESP 18
[2023-05-24] MEDS: LEVOTHYROXINE 100MCG VIAL IV SCH (04:38)
[2023-05-24 07:33] VITALS: BP 104/69; PULSE 106; RESP 18
[2023-05-24] MEDS: Vitamin B Complex/Vit C/Folic Acid PO SCH (07:39)
[2023-05-24] MEDS: ACETAMINOPHEN 500 MG TABLET PO PRN (07:40)
[2023-05-24] MEDS: HYDROXYZINE 25 MG TABLET PO SCH ×3 (07:41→20:58)
[2023-05-24 08:00] VITALS: O2SAT 97
[2023-05-24] MEDS: FUROSEMIDE 20MG VIAL IV SCH ×2 (09:14→23:11)
[2023-05-24] MEDS: KCL 20 MEQ ERTAB PO PRN ×3 (09:14→12:33)
[2023-05-24 11:18] VITALS: BP 111/69; PULSE 104; RESP 18
[2023-05-24 16:34] VITALS: BP 108/59; PULSE 114; RESP 18
[2023-05-25] VITALS (41 sets, daily range): BP systolic 73–115; BP diastolic 45–79; PULSE 82–125; RESP 8–22; O2SAT 95–98
[2023-05-25] MEDS: NYSTATIN 100000 UNIT/ML 5ML UDCUP PO SCH ×3 (01:44→17:59)
[2023-05-25 04:24] LABS: HEMATOCRIT 25.3 % (36-48); MEAN CORPUSCULAR HEMOGLOBIN 27.2 pg (27.0-33.0); MEAN CORPUSCULAR HGB CONC 29.6 g/dL (32.0-36.0); MEAN CORPUSCULAR VOLUME 91.7 fL (79-99); RED BLOOD CELL COUNT(AUTO) 2.76 MIL/uL (4.00-5.50); RED CELL DISTRIBUTION WIDTH 18.4 % (11.0-15.5); WHITE BLOOD COUNT (AUTO) 7.7 K/uL (4.8-10.8)
[2023-05-25 04:50] LABS: ALBUMIN 1.1 g/dL (3.5-5.0); CREATININE 0.7 mg/dL (0.5-1.5); MAGNESIUM 1.8 mg/dL (1.80-2.40); POTASSIUM 3.7 mmol/L (3.5-5.1); TOTAL PROTEIN, SERUM 3.9 g/dL (6.0-8.3)
[2023-05-25] MEDS: LEVOTHYROXINE 100MCG VIAL IV SCH (05:12)
[2023-05-25] MEDS: HYDROXYZINE 25 MG TABLET PO SCH ×3 (09:21→20:41)
[2023-05-25] MEDS: Vitamin B Complex/Vit C/Folic Acid PO SCH (09:21)
[2023-05-25] MEDS: FUROSEMIDE 20MG VIAL IV SCH ×2 (09:26→22:28)
[2023-05-25] MEDS: ACETAMINOPHEN 500 MG TABLET PO PRN (09:28)
[2023-05-25] MEDS ORDERED: CLINDAMYCIN IVPB 300MG/50ML 50 ML IV SCH (10:00)
[2023-05-25] MEDS ORDERED: SODIUM CHLORIDE 3% FOR INHALATION 4 ML/AMP VIAL.NEB IH ONE (11:28)
[2023-05-25] MEDS: 0.9%NACL 1000ML 1,000 ML IV SCH ×2 (11:54→20:41)
[2023-05-25] MEDS ORDERED: LEVOFLOXACIN 750 MG/D5W 150 ML 150 ML IV SCH (12:00)
[2023-05-25] MEDS ORDERED: VANCOMYCIN PROTOCOL PER PHARMACY IV SCH (14:00)
[2023-05-25] MEDS ORDERED: 0.9%NACL 1000ML 1,000 ML IV SCH (15:00)
[2023-05-25] MEDS ORDERED: NOREPINEPHRIN 4MG/NS 250ML 250 ML IV SCH (15:00)
[2023-05-25] MEDS ORDERED: VANCOMYCIN KIT 1 GM/250 ML IV.KIT IV ONE (15:30)
[2023-05-25] MEDS ORDERED: COMPOUND IV MISC 1 EACH IVSOLN MISC PRN (15:30)
[2023-05-25] MEDS: MEROPENEM 1 GM in 0.9%NACL 100ML 100 ML IVPB SCH ×2 (17:59→20:41)
[2023-05-26] VITALS (28 sets, daily range): BP systolic 86–167; BP diastolic 61–88; PULSE 54–107; RESP 8–25; O2SAT 95–96
[2023-05-26] MEDS: NYSTATIN 100000 UNIT/ML 5ML UDCUP PO SCH ×4 (01:30→23:58)
[2023-05-26] MEDS ORDERED: VANCOMYCIN 1.25 GM/250 ML BAG 250 ML IV SCH (03:30)
[2023-05-26 04:19] LABS: BASOPHILS % (AUTO) 0.5 % (0.0-5.0); HEMATOCRIT 26.4 % (36-48); LYMPHOCYTES % (AUTO) 14.9 % (21.0-51.0); MEAN CORPUSCULAR HEMOGLOBIN 28.1 pg (27.0-33.0); MEAN CORPUSCULAR HGB CONC 30.7 g/dL (32.0-36.0); MEAN CORPUSCULAR VOLUME 91.7 fL (79-99); MONOCYTES % (AUTO) 7.6 % (3.0-13.0); NEUTROPHILS % (AUTO) 76.3 % (40.0-77.0); NUCLEATED RED BLOOD CELLS 0.2 % (0.0-0.19); PLATELET COUNT (AUTO) 153 K/uL (130-400); RED BLOOD CELL COUNT(AUTO) 2.88 MIL/uL (4.00-5.50); RED CELL DISTRIBUTION WIDTH 18.1 % (11.0-15.5); WHITE BLOOD COUNT (AUTO) 10.4 K/uL (4.8-10.8)
[2023-05-26 04:30] LABS: ALBUMIN 1.1 g/dL (3.5-5.0); CREATININE 0.7 mg/dL (0.5-1.5); POTASSIUM 3.2 mmol/L (3.5-5.1); TOTAL PROTEIN, SERUM 3.9 g/dL (6.0-8.3)
[2023-05-26] MEDS: MEROPENEM 1 GM in 0.9%NACL 100ML 100 ML IVPB SCH ×2 (06:00→22:38)
[2023-05-26] MEDS: LEVOTHYROXINE 100MCG VIAL IV SCH (06:30)
[2023-05-26] MEDS: Vitamin B Complex/Vit C/Folic Acid PO SCH (08:45)
[2023-05-26] MEDS: FUROSEMIDE 20MG VIAL IV SCH ×2 (08:45→22:33)
[2023-05-26] MEDS: HYDROXYZINE 25 MG TABLET PO SCH ×3 (08:45→22:32)
[2023-05-26] MEDS ORDERED: COMPOUND IV REFRIGERATED 1 EACH IVSOLN MISC PRN (09:00)
[2023-05-26] MEDS: POTASSIUM CHLORIDE 20MEQ/100ML 100 ML IV PRN (09:06)
[2023-05-26] MEDS: MORPHINE 2 MG SYG IVP PRN ×2 (10:21→15:15)
[2023-05-26] MEDS: MAGNESIUM 2GM PREMIX 50ML 50 ML IV PRN (12:20)
[2023-05-26] MEDS: 0.9%NACL 1000ML 1,000 ML IV SCH (12:47)
[2023-05-26] MEDS ORDERED: VANCOMYCIN 1.5 GM/250 ML BAG 250 ML IV ONE (17:00)
[2023-05-26] MEDS: BALSAM PERU/CASTOR OIL 60 GM TUBE TP SCH (21:00)
[2023-05-26] MEDS: NYSTATIN 15 GM OINT TP PRN (22:34)
[2023-05-26] MEDS: ACETAMINOPHEN 500 MG TABLET PO PRN (22:51)
[2023-05-27] VITALS (8 sets, daily range): BP systolic 106–120; BP diastolic 69–86; PULSE 92–113; RESP 16–20; TEMP 97.9; O2SAT 96–99
[2023-05-27] MEDS: 0.9%NACL 1000ML 1,000 ML IV SCH ×3 (04:52→22:46)
[2023-05-27] MEDS: VANCOMYCIN 750MG VIAL IVPB SCH ×2 (04:53→17:28)
[2023-05-27] MEDS: LEVOTHYROXINE 100MCG VIAL IV SCH (04:53)
[2023-05-27 05:08] LABS: CREATININE 0.8 mg/dL (0.5-1.5)
[2023-05-27] MEDS: MEROPENEM 1 GM in 0.9%NACL 100ML 100 ML IVPB SCH ×3 (06:42→22:42)
[2023-05-27] MEDS: MORPHINE 2 MG SYG IVP PRN ×3 (06:45→23:12)
[2023-05-27] MEDS: KCL 20 MEQ ERTAB PO PRN ×2 (06:50→22:32)
[2023-05-27] MEDS ORDERED: KCL 20 MEQ ERTAB PO ONE (09:00)
[2023-05-27 09:15] LABS: BASOPHILS % (AUTO) 0.5 % (0.0-5.0); EOSINOPHILS % (AUTO) 0.2 % (0.0-8.0); HEMATOCRIT 30.6 % (36-48); LYMPHOCYTES % (AUTO) 18.7 % (21.0-51.0); MEAN CORPUSCULAR HEMOGLOBIN 27.3 pg (27.0-33.0); MEAN CORPUSCULAR HGB CONC 29.7 g/dL (32.0-36.0); MEAN CORPUSCULAR VOLUME 91.9 fL (79-99); MONOCYTES % (AUTO) 8.6 % (3.0-13.0); NEUTROPHILS % (AUTO) 70.9 % (40.0-77.0); PLATELET COUNT (AUTO) 176 K/uL (130-400); RED BLOOD CELL COUNT(AUTO) 3.33 MIL/uL (4.00-5.50); RED CELL DISTRIBUTION WIDTH 17.9 % (11.0-15.5); WHITE BLOOD COUNT (AUTO) 8.5 K/uL (4.8-10.8)
[2023-05-27] MEDS: Vitamin B Complex/Vit C/Folic Acid PO SCH (09:31)
[2023-05-27] MEDS: HYDROXYZINE 25 MG TABLET PO SCH ×3 (09:31→22:31)
[2023-05-27] MEDS: FUROSEMIDE 20MG VIAL IV SCH ×2 (09:32→22:44)
[2023-05-27] MEDS: NYSTATIN 100000 UNIT/ML 5ML UDCUP PO SCH ×3 (09:47→23:34)
[2023-05-27] MEDS: ACETAMINOPHEN 500 MG TABLET PO PRN ×2 (16:06→22:42)
[2023-05-27] MEDS: BALSAM PERU/CASTOR OIL 60 GM TUBE TP SCH (22:43)
[2023-05-28 04:06] VITALS: BP 102/72; PULSE 93; RESP 16
[2023-05-28] MEDS: MORPHINE 2 MG SYG IVP PRN ×3 (04:48→13:50)
[2023-05-28] MEDS: LEVOTHYROXINE 100MCG VIAL IV SCH (04:48)
[2023-05-28] MEDS: MEROPENEM 1 GM in 0.9%NACL 100ML 100 ML IVPB SCH (04:48)
[2023-05-28 07:41] LABS: BASOPHILS % (AUTO) 0.4 % (0.0-5.0); EOSINOPHILS % (AUTO) 0.3 % (0.0-8.0); LYMPHOCYTES % (AUTO) 17.5 % (21.0-51.0); MEAN CORPUSCULAR HEMOGLOBIN 27.8 pg (27.0-33.0); MEAN CORPUSCULAR HGB CONC 30.4 g/dL (32.0-36.0); MEAN CORPUSCULAR VOLUME 91.5 fL (79-99); MONOCYTES % (AUTO) 6.8 % (3.0-13.0); NEUTROPHILS % (AUTO) 73.9 % (40.0-77.0); PLATELET COUNT (AUTO) 137 K/uL (130-400); RED BLOOD CELL COUNT(AUTO) 2.84 MIL/uL (4.00-5.50); RED CELL DISTRIBUTION WIDTH 17.5 % (11.0-15.5); WHITE BLOOD COUNT (AUTO) 7.3 K/uL (4.8-10.8)
[2023-05-28] MEDS: ACETAMINOPHEN 500 MG TABLET PO PRN (07:46)
[2023-05-28 08:00] VITALS: BP 112/75; PULSE 92; RESP 18; O2SAT 98
[2023-05-28 08:35] LABS: ASPARTATE AMINOTRANSFERASE 18 U/L (10-37); CARBON DIOXIDE 26 mmol/L (21-32); CHLORIDE 105 mmol/L (101-111); CREATININE 0.7 mg/dL (0.5-1.5); GLOMERULAR FILTR. RATE CALC 101 mL/min (>90); GLUCOSE,RANDOM 81 mg/dL (70-105); POTASSIUM 3.7 mmol/L (3.5-5.1); SODIUM SERUM 138 mmol/L (136-145); TOTAL PROTEIN, SERUM 3.9 g/dL (6.0-8.3); UREA NITROGEN, BLOOD 21 mg/dL (7-18)
[2023-05-28 08:36] LABS: ALANINE AMINOTRANSFERASE < 6 U/L (12-78)
[2023-05-28] MEDS: NYSTATIN 100000 UNIT/ML 5ML UDCUP PO SCH ×2 (09:42→17:14)
[2023-05-28] MEDS: BALSAM PERU/CASTOR OIL 60 GM TUBE TP SCH ×2 (09:42→21:36)
[2023-05-28] MEDS: Vitamin B Complex/Vit C/Folic Acid PO SCH (10:14)
[2023-05-28] MEDS: HYDROXYZINE 25 MG TABLET PO SCH ×2 (10:45→12:14)
[2023-05-28] MEDS: FUROSEMIDE 20MG VIAL IV SCH ×2 (10:45→21:36)
[2023-05-28 12:00] VITALS: BP 115/74; PULSE 104; RESP 18
[2023-05-28] MEDS: KCL 20 MEQ ERTAB PO PRN ×2 (13:50→18:58)
[2023-05-28 16:00] VITALS: BP 119/90; PULSE 104; RESP 18
[2023-05-28] MEDS: HYDROMORPHONE 0.5 MG SYG (0.5MG/0.5ML) IVP PRN (17:13)
[2023-05-28] MEDS: 0.9%NACL 1000ML 1,000 ML IV SCH (17:37)
[2023-05-28] MEDS: MAGNESIUM 2GM PREMIX 50ML 50 ML IV PRN (18:57)
[2023-05-28 20:00] VITALS: BP 121/87; PULSE 106; RESP 20; O2SAT 92
[2023-05-29] VITALS: BP 134/95; PULSE 108; RESP 22
[2023-05-29] MEDS: HYDROMORPHONE 0.5 MG SYG (0.5MG/0.5ML) IVP PRN ×2 (00:15→03:11)
[2023-05-29] MEDS: NYSTATIN 100000 UNIT/ML 5ML UDCUP PO SCH ×3 (02:43→17:59)
[2023-05-29 04:00] VITALS: BP 122/77; PULSE 86; RESP 20
[2023-05-29] MEDS: LEVOTHYROXINE 100MCG VIAL IV SCH (05:37)
[2023-05-29 06:20] LABS: HEMATOCRIT 24.4 % (36-48); MEAN CORPUSCULAR HGB CONC 30.7 g/dL (32.0-36.0); RED BLOOD CELL COUNT(AUTO) 2.68 MIL/uL (4.00-5.50); RED CELL DISTRIBUTION WIDTH 17.4 % (11.0-15.5); WHITE BLOOD COUNT (AUTO) 8.5 K/uL (4.8-10.8)
[2023-05-29 06:35] LABS: ALBUMIN 1.1 g/dL (3.5-5.0); CREATININE 0.5 mg/dL (0.5-1.5); MAGNESIUM 2.1 mg/dL (1.80-2.40); POTASSIUM 3.6 mmol/L (3.5-5.1); VANCOMYCIN LEVEL 14.9 mcg/mL (18.0-26.0)
[2023-05-29 08:00] VITALS: BP 122/85; PULSE 95; RESP 18; O2SAT 94
[2023-05-29] MEDS ORDERED: VANCOMYCIN HCL 1.25 GM/250 ML BAG IV SCH (09:00)
[2023-05-29] MEDS: BALSAM PERU/CASTOR OIL 60 GM TUBE TP SCH ×2 (09:51→20:32)
[2023-05-29] MEDS: 0.9%NACL 1000ML 1,000 ML IV SCH ×2 (09:51→20:32)
[2023-05-29] MEDS: Vitamin B Complex/Vit C/Folic Acid PO SCH (09:52)
[2023-05-29] MEDS: FUROSEMIDE 20MG VIAL IV SCH ×2 (11:32→20:31)
[2023-05-29 12:00] VITALS: BP 113/84; PULSE 106; RESP 17
[2023-05-29] MEDS: KCL 20 MEQ ERTAB PO PRN ×2 (13:25→18:02)
[2023-05-29 16:00] VITALS: BP 132/73; PULSE 105; RESP 18
[2023-05-29 20:00] VITALS: BP 116/81; PULSE 106; RESP 20; O2SAT 96
[2023-05-30] VITALS (8 sets, daily range): BP systolic 91–148; BP diastolic 62–92; PULSE 98–109; RESP 18–20; O2SAT 92–97
[2023-05-30] MEDS: NYSTATIN 100000 UNIT/ML 5ML UDCUP PO SCH ×3 (01:10→17:13)
[2023-05-30 05:23] LABS: HEMATOCRIT 22.5 % (36-48); MEAN CORPUSCULAR HGB CONC 31.1 g/dL (32.0-36.0); RED BLOOD CELL COUNT(AUTO) 2.5 MIL/uL (4.00-5.50); RED CELL DISTRIBUTION WIDTH 17.2 % (11.0-15.5); WHITE BLOOD COUNT (AUTO) 7.6 K/uL (4.8-10.8)
[2023-05-30] MEDS: LEVOTHYROXINE 100MCG VIAL IV SCH (05:31)
[2023-05-30 05:33] LABS: CREATININE 0.6 mg/dL (0.5-1.5); MAGNESIUM 1.8 mg/dL (1.80-2.40); POTASSIUM 3.5 mmol/L (3.5-5.1); TOTAL PROTEIN, SERUM 3.7 g/dL (6.0-8.3)
[2023-05-30] MEDS: MAGNESIUM 2GM PREMIX 50ML 50 ML IV SCH (06:15)
[2023-05-30] MEDS: POTASSIUM CHLORIDE 10% ELIXIR 20 MEQ/15 ML UDCUP PO PRN (06:16)
[2023-05-30] MEDS: HYDROMORPHONE 0.5 MG SYG (0.5MG/0.5ML) IVP PRN ×3 (06:29→17:13)
[2023-05-30] MEDS: 0.9%NACL 1000ML 1,000 ML IV SCH ×2 (09:11→23:09)
[2023-05-30] MEDS: Vitamin B Complex/Vit C/Folic Acid PO SCH (09:11)
[2023-05-30] MEDS: BALSAM PERU/CASTOR OIL 60 GM TUBE TP SCH ×2 (09:11→22:12)
[2023-05-30] MEDS: FUROSEMIDE 20MG VIAL IV SCH ×2 (10:42→22:12)
[2023-05-30] MEDS: LACTULOSE 20 GM/30 ML UDCUP PO SCH (10:45)
[2023-05-30] MEDS: KCL 20 MEQ ERTAB PO PRN (10:47)
[2023-05-30] MEDS ORDERED: KCL 20 MEQ ERTAB PO ONE (11:30)
[2023-05-30] MEDS ORDERED: MAGNESIUM 2GM PREMIX 50ML 50 ML IV SCH (11:30)
[2023-05-31] VITALS (7 sets, daily range): BP systolic 116–143; BP diastolic 65–89; PULSE 92–105; RESP 16–18; O2SAT 95–96
[2023-05-31] MEDS: HYDROMORPHONE 0.5 MG SYG (0.5MG/0.5ML) IVP PRN ×5 (01:15→23:03)
[2023-05-31] MEDS: NYSTATIN 100000 UNIT/ML 5ML UDCUP PO SCH ×3 (01:37→18:42)
[2023-05-31] MEDS: ACETAMINOPHEN 500 MG TABLET PO PRN ×4 (01:37→23:13)
[2023-05-31] MEDS: LEVOTHYROXINE 100MCG VIAL IV SCH (06:03)
[2023-05-31 07:48] LABS: HEMATOCRIT 27.1 % (36-48); MEAN CORPUSCULAR HEMOGLOBIN 28.8 pg (27.0-33.0); MEAN CORPUSCULAR HGB CONC 32.5 g/dL (32.0-36.0); MEAN CORPUSCULAR VOLUME 88.6 fL (79-99); RED BLOOD CELL COUNT(AUTO) 3.06 MIL/uL (4.00-5.50); RED CELL DISTRIBUTION WIDTH 16.4 % (11.0-15.5); WHITE BLOOD COUNT (AUTO) 9.4 K/uL (4.8-10.8)
[2023-05-31 08:04] LABS: ASPARTATE AMINOTRANSFERASE 16 U/L (10-37); CARBON DIOXIDE 27 mmol/L (21-32); CHLORIDE 106 mmol/L (101-111); CREATININE 0.5 mg/dL (0.5-1.5); GLOMERULAR FILTR. RATE CALC 110 mL/min (>90); GLUCOSE,RANDOM 91 mg/dL (70-105); POTASSIUM 3.4 mmol/L (3.5-5.1); SODIUM SERUM 138 mmol/L (136-145); TOTAL PROTEIN, SERUM 3.5 g/dL (6.0-8.3); UREA NITROGEN, BLOOD 17 mg/dL (7-18)
[2023-05-31 08:23] LABS: ALANINE AMINOTRANSFERASE < 6 U/L (12-78)
[2023-05-31] MEDS: LACTULOSE 20 GM/30 ML UDCUP PO SCH (08:50)
[2023-05-31] MEDS: Vitamin B Complex/Vit C/Folic Acid PO SCH (08:50)
[2023-05-31] MEDS: BALSAM PERU/CASTOR OIL 60 GM TUBE TP SCH ×2 (08:50→21:22)
[2023-05-31] MEDS: NYSTATIN 15 GM OINT TP PRN (08:50)
[2023-05-31] MEDS: KCL 20 MEQ ERTAB PO PRN ×2 (09:00→11:37)
[2023-05-31] MEDS: MAGNESIUM 2GM PREMIX 50ML 50 ML IV SCH (09:01)
[2023-05-31] MEDS: FUROSEMIDE 20MG VIAL IV SCH ×2 (11:36→22:36)
[2023-05-31] MEDS: 0.9%NACL 1000ML 1,000 ML IV SCH (11:58)
[2023-06-01] VITALS (8 sets, daily range): BP systolic 111–152; BP diastolic 69–99; PULSE 90–107; RESP 16–20; O2SAT 95–96
[2023-06-01] MEDS: NYSTATIN 100000 UNIT/ML 5ML UDCUP PO SCH ×3 (01:30→16:46)
[2023-06-01] MEDS: 0.9%NACL 1000ML 1,000 ML IV SCH ×2 (02:46→16:44)
[2023-06-01] MEDS: HYDROMORPHONE 0.5 MG SYG (0.5MG/0.5ML) IVP PRN ×2 (02:47→15:04)
[2023-06-01] MEDS: NYSTATIN 15 GM OINT TP PRN ×2 (02:49→08:59)
[2023-06-01] MEDS: LEVOTHYROXINE 100MCG VIAL IV SCH (06:06)
[2023-06-01 06:42] LABS: CREATININE 0.5 mg/dL (0.5-1.5); POTASSIUM 3.7 mmol/L (3.5-5.1); TOTAL PROTEIN, SERUM 3.6 g/dL (6.0-8.3)
[2023-06-01] MEDS: LACTULOSE 20 GM/30 ML UDCUP PO SCH (08:57)
[2023-06-01] MEDS: Vitamin B Complex/Vit C/Folic Acid PO SCH (08:57)
[2023-06-01] MEDS: BALSAM PERU/CASTOR OIL 60 GM TUBE TP SCH ×2 (08:58→20:22)
[2023-06-01] MEDS: ACETAMINOPHEN 500 MG TABLET PO PRN (08:59)
[2023-06-01] MEDS: FUROSEMIDE 20MG VIAL IV SCH ×2 (11:24→22:33)
[2023-06-02] MEDS: NYSTATIN 100000 UNIT/ML 5ML UDCUP PO SCH ×3 (02:24→17:57)
[2023-06-02 03:20] VITALS: BP 134/82; PULSE 106; RESP 16
[2023-06-02] MEDS: 0.9%NACL 1000ML 1,000 ML IV SCH ×2 (05:30→18:00)
[2023-06-02] MEDS: LEVOTHYROXINE 100MCG VIAL IV SCH (05:31)
[2023-06-02] MEDS: HYDROMORPHONE 0.5 MG SYG (0.5MG/0.5ML) IVP PRN ×3 (06:07→18:01)
[2023-06-02 07:45] VITALS: O2SAT 92
[2023-06-02 08:00] VITALS: BP 135/86; PULSE 102; RESP 20
[2023-06-02 09:00] LABS: CREATININE 0.6 mg/dL (0.5-1.5); POTASSIUM 3.3 mmol/L (3.5-5.1); TOTAL PROTEIN, SERUM 3.8 g/dL (6.0-8.3)
[2023-06-02] MEDS: Vitamin B Complex/Vit C/Folic Acid PO SCH (09:12)
[2023-06-02] MEDS: LACTULOSE 20 GM/30 ML UDCUP PO SCH (09:12)
[2023-06-02] MEDS: FUROSEMIDE 20MG VIAL IV SCH ×2 (09:13→22:44)
[2023-06-02] MEDS: BALSAM PERU/CASTOR OIL 60 GM TUBE TP SCH ×2 (09:14→20:27)
[2023-06-02] MEDS: ACETAMINOPHEN 500 MG TABLET PO PRN ×2 (10:20→20:27)
[2023-06-02 12:12] VITALS: BP 146/92; PULSE 124; RESP 21
[2023-06-02 16:00] VITALS: BP 123/94; PULSE 113; RESP 20
[2023-06-02] MEDS: POTASSIUM CHLORIDE 10% ELIXIR 20 MEQ/15 ML UDCUP PO PRN (17:58)
[2023-06-02 20:00] VITALS: BP 118/89; PULSE 110; RESP 20; O2SAT 93
[2023-06-03] MEDS: NYSTATIN 15 GM OINT TP PRN (01:16)
[2023-06-03] MEDS: NYSTATIN 100000 UNIT/ML 5ML UDCUP PO SCH ×3 (01:18→17:44)
[2023-06-03] MEDS: HYDROMORPHONE 0.5 MG SYG (0.5MG/0.5ML) IVP PRN ×2 (01:58→21:12)
[2023-06-03 04:00] VITALS: BP 149/90; PULSE 108; RESP 20
[2023-06-03] MEDS: LEVOTHYROXINE 100MCG VIAL IV SCH (05:55)
[2023-06-03] MEDS: ACETAMINOPHEN 500 MG TABLET PO PRN (06:01)
[2023-06-03 07:45] VITALS: O2SAT 93
[2023-06-03 07:52] VITALS: BP 124/86; PULSE 89; RESP 17
[2023-06-03] MEDS: LACTULOSE 20 GM/30 ML UDCUP PO SCH (09:05)
[2023-06-03] MEDS: BALSAM PERU/CASTOR OIL 60 GM TUBE TP SCH ×2 (09:08→21:12)
[2023-06-03] MEDS ORDERED: KCL 20 MEQ ERTAB PO ONE (09:30)
[2023-06-03 12:00] VITALS: BP 104/75; PULSE 91; RESP 17
[2023-06-03] MEDS: FUROSEMIDE 20MG VIAL IV SCH ×2 (12:14→21:11)
[2023-06-03 16:00] VITALS: BP 111/79; PULSE 101; RESP 19
[2023-06-03 20:00] VITALS: BP 140/93; PULSE 101; RESP 22; O2SAT 97
[2023-06-04] VITALS (8 sets, daily range): BP systolic 130–154; BP diastolic 69–94; PULSE 86–119; RESP 19–21; O2SAT 97
[2023-06-04] MEDS: NYSTATIN 100000 UNIT/ML 5ML UDCUP PO SCH ×3 (01:04→18:02)
[2023-06-04] MEDS: LEVOTHYROXINE 100MCG VIAL IV SCH (06:03)
[2023-06-04] MEDS: ACETAMINOPHEN 500 MG TABLET PO PRN (06:29)
[2023-06-04] MEDS: HYDROMORPHONE 0.5 MG SYG (0.5MG/0.5ML) IVP PRN ×3 (08:43→21:07)
[2023-06-04] MEDS: LACTULOSE 20 GM/30 ML UDCUP PO SCH (08:43)
[2023-06-04 08:57] LABS: ALBUMIN 1.2 g/dL (3.5-5.0); CREATININE 0.6 mg/dL (0.5-1.5); MAGNESIUM 1.6 mg/dL (1.80-2.40); POTASSIUM 3.5 mmol/L (3.5-5.1); TOTAL PROTEIN, SERUM 4.1 g/dL (6.0-8.3)
[2023-06-04] MEDS: BALSAM PERU/CASTOR OIL 60 GM TUBE TP SCH ×2 (09:04→20:49)
[2023-06-04 09:41] LABS: HEMATOCRIT 33.1 % (36-48); MEAN CORPUSCULAR HEMOGLOBIN 29.1 pg (27.0-33.0); MEAN CORPUSCULAR HGB CONC 31.7 g/dL (32.0-36.0); MEAN CORPUSCULAR VOLUME 91.7 fL (79-99); RED BLOOD CELL COUNT(AUTO) 3.61 MIL/uL (4.00-5.50); RED CELL DISTRIBUTION WIDTH 17.8 % (11.0-15.5); WHITE BLOOD COUNT (AUTO) 16.5 K/uL (4.8-10.8)
[2023-06-04] MEDS: 0.9%NACL 1000ML 1,000 ML IV SCH ×2 (10:00→23:20)
[2023-06-04] MEDS: FUROSEMIDE 20MG VIAL IV SCH ×2 (11:06→22:40)
[2023-06-04] MEDS ORDERED: MAGNESIUM 2GM PREMIX 50ML 50 ML IV SCH (14:30)
[2023-06-04] MEDS: LEVOFLOXACIN 500 MG/D5W 100 ML 100 ML IV SCH (15:39)
[2023-06-05] VITALS (8 sets, daily range): BP systolic 108–135; BP diastolic 77–88; PULSE 110–118; RESP 18–20; O2SAT 94–95
[2023-06-05] MEDS: NYSTATIN 100000 UNIT/ML 5ML UDCUP PO SCH ×3 (02:50→17:49)
[2023-06-05] MEDS: LEVOTHYROXINE 100MCG VIAL IV SCH (05:41)
[2023-06-05 05:51] LABS: HEMATOCRIT 27.3 % (36-48); MEAN CORPUSCULAR HEMOGLOBIN 28.8 pg (27.0-33.0); MEAN CORPUSCULAR HGB CONC 32.2 g/dL (32.0-36.0); MEAN CORPUSCULAR VOLUME 89.2 fL (79-99); RED BLOOD CELL COUNT(AUTO) 3.06 MIL/uL (4.00-5.50); RED CELL DISTRIBUTION WIDTH 18.3 % (11.0-15.5)
[2023-06-05 06:13] LABS: ALBUMIN 1.2 g/dL (3.5-5.0); CREATININE 0.5 mg/dL (0.5-1.5); MAGNESIUM 1.4 mg/dL (1.80-2.40); TOTAL PROTEIN, SERUM 3.9 g/dL (6.0-8.3)
[2023-06-05] MEDS: POTASSIUM CHLORIDE 10% ELIXIR 20 MEQ/15 ML UDCUP PO PRN ×2 (06:21→09:04)
[2023-06-05] MEDS: BALSAM PERU/CASTOR OIL 60 GM TUBE TP SCH ×2 (09:03→20:58)
[2023-06-05] MEDS: LACTULOSE 20 GM/30 ML UDCUP PO SCH (09:03)
[2023-06-05] MEDS: ACETAMINOPHEN 500 MG TABLET PO PRN (09:04)
[2023-06-05] MEDS: FUROSEMIDE 20MG VIAL IV SCH ×2 (10:57→23:13)
[2023-06-05] MEDS: KCL 20 MEQ ERTAB PO PRN (10:57)
[2023-06-05] MEDS: 0.9%NACL 1000ML 1,000 ML IV SCH (12:40)
[2023-06-05] MEDS ORDERED: MAGNESIUM 2GM PREMIX 50ML 50 ML IV SCH (13:00)
[2023-06-05] MEDS ORDERED: KCL 20 MEQ ERTAB PO ONE (13:00)
[2023-06-05] MEDS: LEVOFLOXACIN 500 MG/D5W 100 ML 100 ML IV SCH (14:25)
[2023-06-05] MEDS: POTASSIUM CHLORIDE 20 MEQ/100 ML BAG IV SCH ×2 (15:08→23:22)
[2023-06-05] MEDS: LIDOCAINE HCL-MPF 1% 2ML VIAL IJ SCH (16:29)
[2023-06-06] VITALS (7 sets, daily range): BP systolic 116–128; BP diastolic 75–95; PULSE 89–124; RESP 20; O2SAT 95–97
[2023-06-06] MEDS: NYSTATIN 100000 UNIT/ML 5ML UDCUP PO SCH ×3 (05:00→17:19)
[2023-06-06] MEDS: 0.9%NACL 1000ML 1,000 ML IV SCH ×3 (05:52→20:33)
[2023-06-06] MEDS: LEVOTHYROXINE 100MCG VIAL IV SCH (05:52)
[2023-06-06 05:54] LABS: HEMATOCRIT 27.2 % (36-48); MEAN CORPUSCULAR HEMOGLOBIN 28.9 pg (27.0-33.0); MEAN CORPUSCULAR HGB CONC 31.6 g/dL (32.0-36.0); MEAN CORPUSCULAR VOLUME 91.3 fL (79-99); RED BLOOD CELL COUNT(AUTO) 2.98 MIL/uL (4.00-5.50); RED CELL DISTRIBUTION WIDTH 18.5 % (11.0-15.5); WHITE BLOOD COUNT (AUTO) 17.2 K/uL (4.8-10.8)
[2023-06-06 06:24] LABS: ALBUMIN 1.2 g/dL (3.5-5.0); CREATININE 0.5 mg/dL (0.5-1.5); MAGNESIUM 1.3 mg/dL (1.80-2.40)
[2023-06-06] MEDS: LACTULOSE 20 GM/30 ML UDCUP PO SCH (08:40)
[2023-06-06] MEDS: BALSAM PERU/CASTOR OIL 60 GM TUBE TP SCH ×2 (08:41→20:25)
[2023-06-06] MEDS: HYDROMORPHONE 0.5 MG SYG (0.5MG/0.5ML) IVP PRN (08:41)
[2023-06-06] MEDS: FUROSEMIDE 20MG VIAL IV SCH ×2 (10:01→20:24)
[2023-06-06] MEDS: LEVOFLOXACIN 500 MG/D5W 100 ML 100 ML IV SCH (14:35)
[2023-06-06] MEDS ORDERED: MAGNESIUM 2GM PREMIX 50ML 50 ML IV SCH (15:30)
[2023-06-06] MEDS: LIDOCAINE HCL-MPF 1% 2ML VIAL IJ SCH (16:18)
[2023-06-06] MEDS ORDERED: METRONIDAZOLE 500MG/100ML BAG 100 ML ONE (20:01)
[2023-06-06] MEDS: METRONIDAZOLE 500MG/100ML BAG 100 ML IVPB SCH (20:24)
[2023-06-07] VITALS (9 sets, daily range): BP systolic 108–141; BP diastolic 73–89; PULSE 95–116; RESP 17–22; O2SAT 92–96
[2023-06-07] MEDS: NYSTATIN 100000 UNIT/ML 5ML UDCUP PO SCH ×3 (01:35→18:16)
[2023-06-07] MEDS: HYDROMORPHONE 0.5 MG SYG (0.5MG/0.5ML) IVP PRN ×2 (01:36→08:24)
[2023-06-07] MEDS: LEVOTHYROXINE 100MCG VIAL IV SCH (04:51)
[2023-06-07] MEDS: METRONIDAZOLE 500MG/100ML BAG 100 ML IVPB SCH ×3 (04:51→22:08)
[2023-06-07] MEDS: LACTULOSE 20 GM/30 ML UDCUP PO SCH (08:24)
[2023-06-07] MEDS: BALSAM PERU/CASTOR OIL 60 GM TUBE TP SCH ×2 (08:37→20:11)
[2023-06-07] MEDS ORDERED: MAGNESIUM 2GM PREMIX 50ML 50 ML IV SCH (09:00)
[2023-06-07] MEDS: FUROSEMIDE 20MG VIAL IV SCH ×2 (09:36→22:08)
[2023-06-07] MEDS: POTASSIUM CHLORIDE 20 MEQ/100 ML BAG IV SCH (12:03)
[2023-06-07] MEDS: LEVOFLOXACIN 500 MG/D5W 100 ML 100 ML IV SCH (14:34)
[2023-06-07] MEDS: LIDOCAINE HCL-MPF 1% 2ML VIAL IJ SCH (14:35)
[2023-06-07] MEDS ORDERED: HYDROMORPHONE 0.5 MG SYG (0.5MG/0.5ML) ONE (20:07)
[2023-06-07] MEDS: 0.9%NACL 1000ML 1,000 ML IV SCH (20:09)
[2023-06-07] MEDS ORDERED: HYDROMORPHONE 0.5 MG SYG (0.5MG/0.5ML) IVP ONE (20:30)
[2023-06-08] VITALS (7 sets, daily range): BP systolic 103–135; BP diastolic 61–94; PULSE 110–122; RESP 18–20; O2SAT 92–96
[2023-06-08] MEDS: NYSTATIN 100000 UNIT/ML 5ML UDCUP PO SCH ×3 (01:54→17:30)
[2023-06-08] MEDS: METRONIDAZOLE 500MG/100ML BAG 100 ML IVPB SCH ×3 (05:14→21:36)
[2023-06-08] MEDS: LEVOTHYROXINE 100MCG VIAL IV SCH (05:14)
[2023-06-08 05:40] LABS: HEMATOCRIT 27.1 % (36-48); MEAN CORPUSCULAR HEMOGLOBIN 29.7 pg (27.0-33.0); MEAN CORPUSCULAR HGB CONC 31.7 g/dL (32.0-36.0); MEAN CORPUSCULAR VOLUME 93.4 fL (79-99); RED BLOOD CELL COUNT(AUTO) 2.9 MIL/uL (4.00-5.50); RED CELL DISTRIBUTION WIDTH 18.8 % (11.0-15.5); WHITE BLOOD COUNT (AUTO) 23.4 K/uL (4.8-10.8)
[2023-06-08 05:54] LABS: ALBUMIN 1.2 g/dL (3.5-5.0); CREATININE 0.7 mg/dL (0.5-1.5); MAGNESIUM 1.5 mg/dL (1.80-2.40); POTASSIUM 3.8 mmol/L (3.5-5.1); TOTAL PROTEIN, SERUM 3.9 g/dL (6.0-8.3)
[2023-06-08] MEDS: 0.9%NACL 1000ML 1,000 ML IV SCH ×2 (07:20→21:38)
[2023-06-08] MEDS: BALSAM PERU/CASTOR OIL 60 GM TUBE TP SCH ×2 (09:00→21:38)
[2023-06-08] MEDS ORDERED: MAGNESIUM 2GM PREMIX 50ML 50 ML IV SCH (09:30)
[2023-06-08] MEDS ORDERED: PHARMACY COMMUNICATION MISC SCH ×2 (09:30→14:30)
[2023-06-08] MEDS ORDERED: VANCOMYCIN KIT 1 GM/250 ML IV.KIT IV SCH (09:30)
[2023-06-08] MEDS: FUROSEMIDE 20MG VIAL IV SCH ×2 (10:01→21:36)
[2023-06-08] MEDS: LACTULOSE 20 GM/30 ML UDCUP PO SCH (10:01)
[2023-06-08] MEDS: KCL 20 MEQ ERTAB PO PRN (10:02)
[2023-06-08] MEDS: POTASSIUM CHLORIDE 20MEQ/100ML 100 ML IV PRN (10:02)
[2023-06-08] MEDS ORDERED: HYDROMORPHONE 0.5 MG SYG (0.5MG/0.5ML) ONE (11:30)
[2023-06-08] MEDS: POTASSIUM CHLORIDE 20 MEQ/100 ML BAG IV SCH (13:00)
[2023-06-08] MEDS: LIDOCAINE HCL-MPF 1% 2ML VIAL IJ SCH (14:15)
[2023-06-08] MEDS: LEVOFLOXACIN 500 MG/D5W 100 ML 100 ML IV SCH (14:15)
[2023-06-08] MEDS ORDERED: VANCOMYCIN PROTOCOL PER PHARMACY IV SCH (15:00)
[2023-06-08] MEDS: HYDROMORPHONE 0.5 MG SYG (0.5MG/0.5ML) IVP PRN ×2 (15:18→21:37)
[2023-06-08] MEDS ORDERED: VANCOMYCIN 1.5 GM/250 ML BAG 250 ML IV ONE (22:00)
[2023-06-09] VITALS (8 sets, daily range): BP systolic 107–141; BP diastolic 67–106; PULSE 100–118; RESP 16–22; O2SAT 96–99
[2023-06-09] MEDS: NYSTATIN 100000 UNIT/ML 5ML UDCUP PO SCH ×3 (02:05→16:05)
[2023-06-09] MEDS: METRONIDAZOLE 500MG/100ML BAG 100 ML IVPB SCH ×3 (05:24→22:22)
[2023-06-09] MEDS: LEVOTHYROXINE 100MCG VIAL IV SCH (05:24)
[2023-06-09] MEDS: LACTULOSE 20 GM/30 ML UDCUP PO SCH (09:00)
[2023-06-09] MEDS: BALSAM PERU/CASTOR OIL 60 GM TUBE TP SCH ×2 (09:00→22:08)
[2023-06-09 09:02] LABS: MEAN CORPUSCULAR HEMOGLOBIN 29.2 pg (27.0-33.0); MEAN CORPUSCULAR HGB CONC 31.5 g/dL (32.0-36.0); MEAN CORPUSCULAR VOLUME 92.5 fL (79-99); RED BLOOD CELL COUNT(AUTO) 2.81 MIL/uL (4.00-5.50)
[2023-06-09 09:22] LABS: ALBUMIN 1.1 g/dL (3.5-5.0); CREATININE 0.7 mg/dL (0.5-1.5); MAGNESIUM 1.4 mg/dL (1.80-2.40); POTASSIUM 3.1 mmol/L (3.5-5.1); TOTAL PROTEIN, SERUM 3.7 g/dL (6.0-8.3)
[2023-06-09] MEDS ORDERED: VANCOMYCIN KIT 1 GM/250 ML IV.KIT IV SCH (10:00)
[2023-06-09] MEDS: 0.9%NACL 1000ML 1,000 ML IV SCH ×2 (10:00→23:15)
[2023-06-09] MEDS ORDERED: KCL 20 MEQ ERTAB PO ONE (11:00)
[2023-06-09] MEDS ORDERED: POTASSIUM CHLORIDE 20 MEQ/100 ML BAG IV SCH (11:00)
[2023-06-09] MEDS ORDERED: MAGNESIUM 2GM PREMIX 50ML 50 ML IV SCH (11:00)
[2023-06-09] MEDS: FUROSEMIDE 20MG VIAL IV SCH ×2 (16:02→22:24)
[2023-06-09] MEDS: LEVOFLOXACIN 500 MG/D5W 100 ML 100 ML IV SCH ×2 (16:04→16:07)
[2023-06-09] MEDS: LIDOCAINE HCL-MPF 1% 2ML VIAL IJ SCH (16:30)
[2023-06-09] MEDS: HYDROMORPHONE 0.5 MG SYG (0.5MG/0.5ML) IVP PRN (16:56)
[2023-06-09] MEDS ORDERED: FENTANYL 25 MCG/HR PATCH TD SCH (20:00)
[2023-06-10] VITALS (7 sets, daily range): BP systolic 88–137; BP diastolic 60–104; PULSE 102–120; RESP 18–24; O2SAT 91–96
[2023-06-10] MEDS: NYSTATIN 100000 UNIT/ML 5ML UDCUP PO SCH ×4 (02:00→17:30)
[2023-06-10] MEDS: HYDROMORPHONE 0.5 MG SYG (0.5MG/0.5ML) IVP PRN (03:36)
[2023-06-10] MEDS: METRONIDAZOLE 500MG/100ML BAG 100 ML IVPB SCH ×3 (06:06→23:16)
[2023-06-10] MEDS: LEVOTHYROXINE 100MCG VIAL IV SCH (06:06)
[2023-06-10 06:15] LABS: ALBUMIN 1.3 g/dL (3.5-5.0); CREATININE 0.9 mg/dL (0.5-1.5); TOTAL PROTEIN, SERUM 4.1 g/dL (6.0-8.3); VANCOMYCIN LEVEL 20.6 mcg/mL (18.0-26.0)
[2023-06-10 06:18] LABS: POTASSIUM 2.9 mmol/L (3.5-5.1)
[2023-06-10] MEDS: KCL 20 MEQ ERTAB PO PRN (06:27)
[2023-06-10] MEDS ORDERED: POTASSIUM CHLORIDE 20 MEQ/100 ML BAG IV SCH (08:00)
[2023-06-10] MEDS ORDERED: KCL 20 MEQ ERTAB PO ONE (08:00)
[2023-06-10] MEDS: LACTULOSE 20 GM/30 ML UDCUP PO SCH ×2 (09:00→10:47)
[2023-06-10] MEDS: BALSAM PERU/CASTOR OIL 60 GM TUBE TP SCH ×2 (10:47→20:48)
[2023-06-10] MEDS: FUROSEMIDE 20MG VIAL IV SCH ×2 (10:47→23:16)
[2023-06-10] MEDS: VANCOMYCIN 1G/250ML KIT 250 ML IV SCH (12:31)
[2023-06-10] MEDS ORDERED: LORAZEPAM 2 MG/ML 1 ML VIAL IM PRN (13:30)
[2023-06-10] MEDS: MORPHINE 2 MG SYG IVP PRN (15:50)
[2023-06-10] MEDS: 0.9%NACL 1000ML 1,000 ML IV SCH (20:43)
[2023-06-10] MEDS: LIDOCAINE HCL-MPF 1% 2ML VIAL IJ SCH (20:43)
[2023-06-11 00:24] VITALS: BP 102/69; PULSE 119
[2023-06-11] MEDS: MORPHINE 2 MG SYG IVP PRN (00:30)
[2023-06-11] MEDS: VANCOMYCIN 1G/250ML KIT 250 ML IV SCH ×2 (00:30→11:00)
[2023-06-11] MEDS: NYSTATIN 100000 UNIT/ML 5ML UDCUP PO SCH ×3 (01:30→16:56)
[2023-06-11] MEDS: 0.9%NACL 1000ML 1,000 ML IV SCH (02:42)
[2023-06-11] MEDS: LEVOTHYROXINE 100MCG VIAL IV SCH (06:11)
[2023-06-11] MEDS: METRONIDAZOLE 500MG/100ML BAG 100 ML IVPB SCH ×2 (06:11→14:00)
[2023-06-11 06:45] VITALS: PULSE 103; RESP 18; O2SAT 92
[2023-06-11 07:35] VITALS: O2SAT 96
[2023-06-11 08:00] VITALS: BP 67/38; PULSE 104; RESP 18
[2023-06-11] MEDS: LACTULOSE 20 GM/30 ML UDCUP PO SCH (09:00)
[2023-06-11] MEDS: BALSAM PERU/CASTOR OIL 60 GM TUBE TP SCH (09:00)
[2023-06-11] MEDS: FUROSEMIDE 20MG VIAL IV SCH (10:30)
[2023-06-11] MEDS: LEVOFLOXACIN 500 MG/D5W 100 ML 100 ML IV SCH (14:30)
[2023-06-11] MEDS: LIDOCAINE HCL-MPF 1% 2ML VIAL IJ SCH (16:30)
== END 2023-06-11 17:15 | DRG 374 ==
LOC: EDH 19:26 → EDHIP 19:27 → 2CH 04-19 00:20 → 4BH 04-19 23:23 → 4CH 04-25 21:12 → 2BH 05-25 14:30 → 3CH 05-26 13:30
PROVIDERS: ADMIT Hospitalist; ATTEND Hospitalist
PROC: 30233N1 Transfusion of Nonautologous Red Blood Cells into Peripheral Vein, Percutaneous Approach (ICD-10-PCS; 2023-04-18)
PROC: 06H03DZ Insertion of Intraluminal Device into Inferior Vena Cava, Percutaneous Approach (ICD-10-PCS; principal; 2023-04-24)
PROC: 0DBN8ZX Excision of Sigmoid Colon, Via Natural or Artificial Opening Endoscopic, Diagnostic (ICD-10-PCS; 2023-04-29)
DX: C18.7 Malignant neoplasm of sigmoid colon (principal); E03.5 Myxedema coma; J96.01 Acute respiratory failure with hypoxia; E43 Unspecified severe protein-calorie malnutrition; Z20.822 Contact with and (suspected) exposure to COVID-19; I50.23 Acute on chronic systolic (congestive) heart failure; I21.A1 Myocardial infarction type 2; K25.4 Chronic or unspecified gastric ulcer with hemorrhage; R64 Cachexia; I31.39 Other pericardial effusion (noninflammatory); E87.1 Hypo-osmolality and hyponatremia; D62 Acute posthemorrhagic anemia; D68.9 Coagulation defect, unspecified; R18.8 Other ascites; F31.60 Bipolar disorder, current episode mixed, unspecified; F20.1 Disorganized schizophrenia; N39.0 Urinary tract infection, site not specified; I82.413 Acute embolism and thrombosis of femoral vein, bilateral; I82.433 Acute embolism and thrombosis of popliteal vein, bilateral; C20 Malignant neoplasm of rectum; R57.8 Other shock; R57.1 Hypovolemic shock; L89.151 Pressure ulcer of sacral region, stage 1; E86.0 Dehydration; E87.6 Hypokalemia; F17.210 Nicotine dependence, cigarettes, uncomplicated; F41.9 Anxiety disorder, unspecified; Z66 Do not resuscitate; R62.7 Adult failure to thrive; J45.909 Unspecified asthma, uncomplicated; K52.9 Noninfective gastroenteritis and colitis, unspecified; Z59.00 Homelessness unspecified; Z59.01 Sheltered homelessness; Z79.82 Long term (current) use of aspirin; Z51.5 Encounter for palliative care; Z74.01 Bed confinement status; Z85.038 Personal history of other malignant neoplasm of large intestine; Z86.718 Personal history of other venous thrombosis and embolism; Z88.0 Allergy status to penicillin; Z90.710 Acquired absence of both cervix and uterus
CPT/HCPCS: 36415; 36430; 37191; 45331; 45335; 71045; 71270; 74176; 74178; 76856; 80048; 80053; 80061; 80202; 81001; 82105; 82270; 82306; 82378; 82533; 82550; 82607; 82746; 83540; 83550; 83605; 83735; 83874; 83880; 84100; 84132; 84145; 84436; 84439; 84443; 84480; 84481; 84484; 85007; 85014; 85018; 85025; 85027; 85610; 85730; 86304; 86316; 86701; 86850; 86900; 86901; 86923; 87040; 87046; 87077; 87088; 87186; 87324; 87390; 87635; 87804; 93005; 93306; 93970; 97039; A4330; A4606; A6454; C1751; C1769; C1894; C9113; G0378; J1170; J1644; J1720; J1756; J1940; J1956; J2185; J2270; J2405; J2704; J3370; J3475; J3480; J3490; J7030; J7050; P9016; P9046; P9047; Q9963; Q9967; 3370; A4215; A4222; A4223; A4620; A6213; C1880